=== PATIENT | male | born 1960 | race American Indian/Alaskan Native ===

== ENCOUNTER 2016-08-19 11:13 | Emergency (ER) | payer BC, OTHER ==
[~2016-08-19] VITALS: Ht 177.8 cm; Wt 106.6 kg
[2016-08-19] MEDS ORDERED: KETOROLAC 30 MG/ML VIAL IVP ONE (11:30)
[2016-08-19] MEDS ORDERED: NS IV 1000 ML 1,000 ML IV SCH (11:30)
--- NOTE | 2016-08-19 11:33 | ED Abdominal Pain ---
General Chief Complaint: Abdominal/GI Problems Stated Complaint: ABD PAIN Source of Information: Patient Exam Limitations: No Limitations History of Present Illness Time Seen By Provider: 11:31 Initial Comments To ER with a four-day history of left low back pain, periumbilical abdominal pain as well as nausea. He also states that he's had some chills but no measured fevers. He had a similar episode of this a few months ago that resolved on its own. He states that he has had some bowel changes including stools that are looser than usual and occasionally have some blood and mucus on them. He has never had this evaluated. Timing/Duration: 4-5 Days Severity/Quality: Moderate Location: Periumbilical Radiation: Back Associated Symptoms: No Fever/Chills Allergies and Home Medications Allergies Coded Allergies: No Known Drug Allergies (Unverified , 08/19/16) Home Medications Ciprofloxacin HCl 500 Mg Tablet, 500 MG PO BID, #14 Prescribed by: BETTY MOHAN on 08/19/16 1245 Metronidazole 500 Mg Tablet, 500 MG PO TID, #21 Prescribed by: BETTY MOHAN on 08/19/16 1245 Review of Systems Constitutional: see HPI, chills, No fever EENTM: No Symptoms Reported Respiratory: No Symptoms Reported Cardiovascular: No Symptoms Reported Gastrointestinal: See HPI, Abdominal Pain, Diarrhea, Nausea, Rectal Bleeding, Denies Vomiting Genitourinary: No Symptoms Reported Musculoskeletal: no symptoms reported Skin: no symptoms reported Endocrine: No Symptoms Reported Past Ryczpyj-Bpilrp-Nmvebc Hx Patient Social History Recent Foreign Travel: No Contact w/Someone Who Travel: No Physical Exam Vital Signs VS - Last 72 Hours, by Label 08/19/16 11:32 Temp 97.2 Pulse 78 Resp 14 B/P (MAP) 156/105 Pulse Ox 95 O2 Delivery Room Air Capillary Refill : General Appearance: WD/WN, no apparent distress HEENT: PERRL/EOMI, normal ENT inspection Neck: non-tender, full range of motion Respiratory: normal breath sounds, no respiratory distress, no accessory muscle use Cardiovascular: regular rate, rhythm, no murmur Gastrointestinal: normal bowel sounds, non tender, soft, No distended, No guarding, No tenderness Extremities: normal range of motion, non-tender, normal inspection Neurologic/Psychiatric: alert, normal mood/affect, oriented x 3 Skin: normal color, warm/dry Progress/Results/Core Measures Results/Orders Lab Results Laboratory Tests Test 08/19/16 11:30 08/19/16 12:08 Range/Units White Blood Count 7.0 4.3-11.0 10^3/uL Red Blood Count 4.54 4.35-5.85 10^6/uL Hemoglobin 15.1 13.3-17.7 G/DL Hematocrit 43 40-54 % Mean Corpuscular Volume 94 80-99 FL Mean Corpuscular Hemoglobin 33 25-34 PG Mean Corpuscular Hemoglobin Concent 35 32-36 G/DL Red Cell Distribution Width 13.4 10.0-14.5 % Platelet Count 188 130-400 10^3/uL Mean Platelet Volume 10.1 7.4-10.4 FL Neutrophils (%) (Auto) 47 42-75 % Lymphocytes (%) (Auto) 40 12-44 % Monocytes (%) (Auto) 10 0-12 % Eosinophils (%) (Auto) 2 0-10 % Basophils (%) (Auto) 1 0-10 % Neutrophils # (Auto) 3.3 1.8-7.8 X 10^3 Lymphocytes # (Auto) 2.8 1.0-4.0 X 10^3 Monocytes # (Auto) 0.7 0.0-1.0 X 10^3 Eosinophils # (Auto) 0.1 0.0-0.3 10^3/uL Basophils # (Auto) 0.0 0.0-0.1 10^3/uL Sodium Level 138 135-145 MMOL/L Potassium Level 4.5 3.6-5.0 MMOL/L Chloride Level 105 98-107 MMOL/L Carbon Dioxide Level 23 21-32 MMOL/L Anion Gap 10 5-14 MMOL/L Blood Urea Nitrogen 13 7-18 MG/DL Creatinine 0.94 0.60-1.30 MG/DL Estimat Glomerular Filtration Rate > 60 BUN/Creatinine Ratio 14 Glucose Level 90 70-105 MG/DL Calcium Level 8.8 8.5-10.1 MG/DL Total Bilirubin 0.8 0.1-1.0 MG/DL Aspartate Amino Transf (AST/SGOT) 21 5-34 U/L Alanine Aminotransferase (ALT/SGPT) 18 0-55 U/L Alkaline Phosphatase 61 40-136 U/L Total Protein 6.7 6.4-8.2 G/DL Albumin 3.9 3.2-4.5 G/DL Urine Color YELLOW Urine Clarity CLEAR Urine pH 8 5-9 Urine Specific [place] 1.015 L 1.016-1.022 Urine Protein NEGATIVE NEGATIVE Urine Glucose (UA) NEGATIVE NEGATIVE Urine Ketones NEGATIVE NEGATIVE Urine Nitrite NEGATIVE NEGATIVE Urine Bilirubin NEGATIVE NEGATIVE Urine Urobilinogen NORMAL NORMAL MG/DL Urine Leukocyte Esterase NEGATIVE NEGATIVE Urine RBC (Auto) 3+ H NEGATIVE Urine RBC 5-10 H /HPF Urine WBC NONE /HPF Urine Squamous Epithelial Cells 0-2 /HPF Urine Crystals NONE /LPF Urine Bacteria NEGATIVE /HPF Urine Casts NONE /LPF Urine Mucus NEGATIVE /LPF Urine Culture Indicated NO My Orders Orders - BETTY MOHAN APRN Cbc With Automated Diff (08/19/16 11:30) Comprehensive Metabolic Panel (08/19/16 11:30) Ct Abdomen/Pelvis W (08/19/16 11:30) Saline Lock/Iv-Start (08/19/16 11:30) Ns Iv 1000 Ml (Sodium Chloride 0.9%) (08/19/16 11:30) Ketorolac Injection (Toradol Injection) (08/19/16 11:30) Ua Culture If Indicated (08/19/16 11:35) Iohexol Injection (Omnipaque 350 Mg/Ml 1 (08/19/16 12:00) Di Iv Start (Assessment) .on IV start (08/19/16 11:51) Sodium Chloride Flush (Catheter Flush Sy (08/19/16 12:00) Ns (Ivpb) (Sodium Chloride 0.9% Ivpb Bag (08/19/16 12:00) Medications Given in ED Current Medications Medications Dose Ordered Sig/Иван Route Start Time Stop Time Status Last Admin Dose Admin Iohexol 100 ml ONCE ONCE IV 08/19/16 12:00 08/19/16 12:01 DC 08/19/16 12:19 100 ML Ketorolac Tromethamine 30 mg ONCE ONCE IVP 08/19/16 11:30 08/19/16 11:32 DC 08/19/16 11:47 30 MG Sodium Chloride 100 ml ONCE ONCE IV 08/19/16 12:00 08/19/16 12:01 DC 08/19/16 12:20 80 ML Vital Signs/I&O Vital Sign - Last 12Hours 08/19/16 11:32 Temp 97.2 Pulse 78 Resp 14 B/P (MAP) 156/105 Pulse Ox 95 O2 Delivery Room Air Progress Note : Progress Note I discussed the CT findings with Dr. Hong. He reports there may be some mild diverticulitis in the left lower quadrant. However there is a more concerning finding which would be an adrenal mass versus hemorrhage of the right adrenal gland. This could be better evaluated with an MRI of abdomen and pelvis both with and without contrast and he does agree that that could wait until Monday, as this has likely been present for quite some time and the patient voices no complaints of right-sided flank or upper quadrant pain. If the MRI is suspicious then he would recommend proceeding with CT guided biopsy. I did attempt to notify Dr. Martino however his office closes at noon on Monday so I will send him a carbon copy of this report. Departure Impression Impression: Primary Impression: Diverticulitis Additional Impression: Right adrenal mass Disposition: HOME, SELF-CARE Condition: Stable Departure-Patient Inst. Decision time for Depature: 12:42 Referrals: NO,LOCAL PHYSICIAN (PCP) Primary Care Physician RICHIE MARTINO MD Patient Instructions: Diverticulitis (DC) Add. Discharge Instructions: 1. Take the antibiotics as directed 2. Return to ER for any worsening symptoms, lightheadedness or right-sided pain 3. Call Dr. Martino on Monday morning at 8 a.m. to make an appointment to be seen. You will need to be scheduled for an MRI of the abdomen and pelvis with and without contrast to further evaluate the mass on your right adrenal gland All discharge instructions reviewed with patient and/or family. Voiced understanding. Scripts Metronidazole (Flagyl) 500 Mg Tablet 500 MG PO TID, #21 TAB Prov: BETTY MOHAN APRN 08/19/16 Ciprofloxacin HCl (Cipro) 500 Mg Tablet 500 MG PO BID, #14 TAB Prov: BETTY MOHAN APRN 08/19/16 Copy Copies To 1: RICHIE MARTINO MD, PETER J APRN Aug 19, 2016 11:33
[2016-08-19 11:36] LABS: BASOPHILS % (AUTO) 1 % (0-10); EOSINOPHILS # (AUTO) 0.1 10^3/uL (0.0-0.3); EOSINOPHILS % (AUTO) 2 % (0-10); LYMPHOCYTES # (AUTO) 2.8 X 10^3 (1.0-4.0); LYMPHOCYTES % (AUTO) 40 % (12-44); MEAN CORPUSCULAR HEMOGLOBIN 33 PG (25-34); MEAN CORPUSCULAR HGB CONC 35 G/DL (32-36); MEAN CORPUSCULAR VOLUME 94 FL (80-99); MEAN PLATELET VOLUME 10.1 FL (7.4-10.4); MONOCYTES # (AUTO) 0.7 X 10^3 (0.0-1.0); MONOCYTES % (AUTO) 10 % (0-12); NEUTROPHILS # (AUTO) 3.3 X 10^3 (1.8-7.8); NEUTROPHILS % (AUTO) 47 % (42-75); PLATELET COUNT 188 10^3/uL (130-400); RED BLOOD COUNT 4.54 10^6/uL (4.35-5.85); RED CELL DISTRIBUTION WIDTH 13.4 % (10.0-14.5)
[2016-08-19 11:53] LABS: ALANINE AMINOTRANSFERASE 18 U/L (0-55); ALBUMIN 3.9 G/DL (3.2-4.5); ANION GAP 10 MMOL/L (5-14); ASPARTATE AMINO TRANSFERASE 21 U/L (5-34); BILIRUBIN,TOTAL 0.8 MG/DL (0.1-1.0); BLOOD UREA NITROGEN 13 MG/DL (7-18); BUN/CREATININE RATIO 14; CALCIUM 8.8 MG/DL (8.5-10.1); CARBON DIOXIDE 23 MMOL/L (21-32); CHLORIDE 105 MMOL/L (98-107); CREATININE SERUM 0.94 MG/DL (0.60-1.30); GFR ESTIMATED > 60; GLUCOSE 90 MG/DL (70-105); POTASSIUM 4.5 MMOL/L (3.6-5.0); SODIUM 138 MMOL/L (135-145); TOTAL PROTEIN 6.7 G/DL (6.4-8.2)
[2016-08-19] MEDS ORDERED: NS 100 ML (IVPB) BAG IV ONE (12:00)
[2016-08-19] MEDS ORDERED: IOHEXOL 350 MG/ML 100 ML (OMNIPAQUE 350) VIAL IV ONE (12:00)
[2016-08-19] MEDS ORDERED: CATHETER FLUSH 10 ML SYR IV PRN (12:00)
[2016-08-19 12:13] LABS: BILIRUBIN,URINE NEGATIVE (NEGATIVE); KETONES,URINE NEGATIVE (NEGATIVE); LEUKOCYTE ESTERASE ,URINE NEGATIVE (NEGATIVE); NITRITE,URINE NEGATIVE (NEGATIVE); PH,URINE 8 (5-9); PROTEIN,URINE NEGATIVE (NEGATIVE); UROBILINOGEN,URINE NORMAL (NORMAL)
[2016-08-19 12:34] LABS: SQUAMOUS EPITHELIAL CELL,UR 0-2 /HPF
[2016-08-19] MEDS ORDERED: CIPR-225 PO (12:45)
[2016-08-19] MEDS ORDERED: METR500T PO (12:45)
--- NOTE | 2016-08-19 12:50 | Diagnostic Imaging Report ---
PROCEDURE: CT abdomen and pelvis with contrast. TECHNIQUE: Multiple contiguous axial images were obtained through the abdomen and pelvis after administration of intravenous contrast. INDICATION: Abdominal pain. 100 mL of Omnipaque 350 is administered intravenously. FINDINGS: The lung bases appear clear. The liver, the gallbladder, the spleen, the pancreas and the left adrenal gland appear unremarkable. There is a right suprarenal mass that appears to arise from the right adrenal gland with smooth margins and heterogeneous internal density measuring 8.4 x 6 x 7 cm. There is heterogenous increased density and fluid level attenuation within it. Accurate assessment of such density pattern would be better achieved with comparison with an unenhanced exam or correlation with MRI of the abdomen with an adrenal mass protocol. The differential possibilities include a neoplasm versus adrenal hemorrhage. The kidneys demonstrate symmetric enhancement and contrast excretion. There is a 1 cm hypodense lesion in the medial aspect of the right kidney too small to accurately characterize. No hydronephrosis. The abdominal aorta is normal in caliber. No para-aortic significantly enlarged lymph nodes seen. The sigmoid colon demonstrates diverticula with mild thickening in the proximal sigmoid. There is no significant pericolonic inflammation however. No abscess or free fluid. The findings are likely secondary to mild diverticulitis. There is minimal nonspecific thickening in the urinary bladder which could be from adjacent diverticulitis or cystitis. No bowel obstruction. The appendix is normal. Tiny umbilical fat-containing hernia seen. The osseous structures appear grossly unremarkable. IMPRESSION: 1. Findings suggestive of mild diverticulitis with no abscess. The urinary bladder wall is slightly thickened, may relate to element of cystitis. Correlate clinically. 2. Well defined heterogenous 8.5 cm right adrenal mass may relate to a neoplasm or adrenal hemorrhage. To differentiate internal clot from enhancing component, a comparison with an unenhanced exam after the contrast washes out or correlation with MRI of the abdomen with and without contrast is recommended. Findings were discussed with Mr. Nima Johnson, BLAISE physician assistant manager retail by Dr. Hong at time of dictation. Dictated by: Dictated on workstation # [id number]
[2016-08-19 13:15] VITALS: BP 147/62
--- OUTSIDE RECORDS SUMMARY | 2016-08-21 12:30 | XMS REPORT ---
Author Author [facility] Organization [facility] Address [address] [place], [place] [id number] Care Team Providers Care Locator Name Role Phone PCP Unavailable Allergies and Adverse Reactions Name Reaction Notes NO KNOWN DRUG ALLERGIES Plan of Treatment Planned Activity Comments Planned Date Planned Time Plan/Goal ECHO EXAM OF ABDOMEN 12/30/2013 12:00 AM X-RAY EXAM OF KNEE 3 09/24/2014 12:00 AM COMPLETE CBC AUTOMATED 09/24/2014 12:00 AM ASSAY OF BLOOD/URIC ACID 09/24/2014 12:00 AM RHEUMATOID FACTOR QUANT 09/24/2014 12:00 AM RBC SED RATE AUTOMATED 09/24/2014 12:00 AM Medications Active Name Start Date Estimated Completion Date SIG Comments prednisone oral tablet 20 mg 09/24/2014 10/03/2014 Take 3 tabs PO once daily x 3 days, then 2 tabs PO once daily x 3 days and then 1 tab PO once daily for 3 days diclofenac sodium oral tablet,delayed release (DR/EC) 75 mg 09/24/20142014 take 1 tablet (75 mg) by oral route 2 times per day for 30 days Name Start Date Expiration Date SIG Comments Zithromax Z-Del oral tablet 250 mg 11/07/2013 11/12/2013 take 2 tablets (500 mg) by oral route once daily for 1 day then 1 tablet (250 mg) by oral route once daily for 4 days amoxicillin oral capsule 500 mg 05/20/2014 05/30/2014 take 1 capsule (500 mg) by oral route 3 times per day for 10 days prednisone oral tablet 20 mg 05/20/2014 05/29/2014 take 3 tabs PO x 3 days, then 2 tabs PO x 3 days, and then 1 tab PO x 3 days Voltaren topical gel 1 % 06/04/2014 08/03/2014 apply 2 gram to the affected area (s) by topical route 4 times per day for 30 days omeprazole oral capsule,delayed release(DR/EC) 20 mg 06/04/2014 08/03/2014 take 1 capsule (20 mg) by oral route once daily 30 minutes to 1 hour before a meal for 60 days Discontinued Name Start Date Discontinued Date SIG Comments hydrocodone-acetaminophen oral tablet 5-325 mg 12/28/2013 05/20/2014 take 1 tablet by oral route every 6 hours as needed for pain naproxen sodium oral tablet 550 mg 05/20/2014 09/24/2014 take 1 tablet (550 mg) by oral route every 12 hours as needed Problem List Not available. Vital Signs Date Time BP-Sys(mm[Hg] BP-Rosalee(mm[Hg]) HR(bpm) RR(rpm) Temp WT HT HC BMI BSA BMI Percentile O2 Sat(%) 09/24/2014 8:08:00 AM 132 mmHg 88 mmHg 63 bpm 20 rpm 97.4 F 233 lbs 70 in 33.43 kg/m2 2.28 m2 99 % 06/04/2014 8:51:00 AM 142 mmHg 88 mmHg 84 bpm 20 rpm 99 F 242 lbs 70 in 34.723 kg/m 2.3284 m 05/20/2014 10:01:00 AM 121 mmHg 79 mmHg 70 bpm 20 rpm 98.3 F 238.8 lbs 70.5 in 33.78 kg/m2 2.32 m2 99 % 12/28/2013 12:09:00 PM 138 mmHg 82 mmHg 88 bpm 18 rpm 97.5 F 237 lbs 70.5 in 33.525 kg/m 2.3124 m 94 % 11/07/2013 1:53:00 PM 139 mmHg 81 mmHg 93 bpm 20 rpm 98.2 F 233.4 lbs 70.5 in 33.02 kg/m2 2.29 m2 95 % Social History Name Description Comments Tobacco Current every day smoker Chewing Tobacco Caffeine 6-7 day Alcohol History of Procedures Date Ordered Description Order Status 11/07/2013 12:00 AM THER/PROPH/DIAG INJ SC/IM Reviewed 12/28/2013 12:00 AM COMPLETE CBC W/AUTO DIFF WBC Returned 12/28/2013 12:00 AM COMPREHEN METABOLIC PANEL Returned Results Summary Data and Description Results 12/28/2013 12:45 PM GLUCOSE 103.0 mg/dLSODIUM 138.0 mmol/LPOTASSIUM 4.30 mmol/ LCHLORIDE 106.0 mmol/LCO2 24.0 mmol/LBUN 14.0 mg/dLCREATININE 1.0 mg/dLSGOT/AST 19.0 IU/LSGPT/ALT 17.0 IU/LALK PHOS 67.0 IU/LTOTAL PROTEIN 6.80 g/dLALBUMIN 4.10 g/dLTOTAL BILI 1.0 mg/dLCALCIUM 8.90 mg/dLeGFR 60 WBC 6.0 RBC 4.39 HGB 14.30 g/dLHCT 41.0 %MCV 93.0 fLMCH 32.60 pgMCHC 34.90 g/dLRDW CV 13.60 %MPV 9.90 fLPLT 196 %NEUT 45.80 %%LYMP 41.40 %%MONO 8.10 %%EOS 3.90 %%BASO 0.80 %# NEUT 2.73 #LYMP 2.47 #MONO 0.48 #EOS 0.23 #BASO 0.05 History Of Immunizations Not available. History of Past Illness Name Date of Onset Comments arm pain shoulder pain Upper Respiratory Infections Nov 07 2013 1:55PM RUQ pain Dec 28 2013 12:12PM RUQ abdominal pain Dec 30 2013 11:37AM Dental infection May 20 2014 10:03AM Left arm numbness May 20 2014 10:03AM Left shoulder pain May 20 2014 10:03AM Neck pain on left side May 20 2014 10:03AM Rotator Cuff Syndrome Jun 04 2014 8:53AM Subacromial Bursitis Jun 04 2014 8:53AM Rotator cuff (capsule) sprain Jun 04 2014 8:53AM Acromioclavicular joint arthritis Jun 04 2014 8:53AM Cervical pain (neck) Jun 04 2014 8:53AM Carpal tunnel syndrome, left Jun 04 2014 8:53AM Knee pain Sep 24 2014 8:09AM Joint pain Sep 24 2014 8:09AM Joint swelling Sep 24 2014 8:09AM Payers Insurance Name Company Name Plan Name Plan Number Policy Number Policy Group Number Start Date [facility] [id number] N/A History of Encounters Visit Date Visit Type Provider 09/24/2014 Office visit Haily Leon PLASTERING CONTRACTOR 06/04/2014 Office visit Jesus Bryan MD 05/20/2014 Office visit Haily Leon PLASTERING CONTRACTOR 12/28/2013 Office visit Pablo Forte PLASTERING CONTRACTOR 11/07/2013 Office visit Haily Leon APRN
--- OUTSIDE RECORDS SUMMARY | 2016-08-21 12:30 | XMS REPORT ---
Author Author Haily Leon [facility] Address [address] [place], [place] [id number] Care Team Providers Care Charging Crane Operator Name Role Phone Haily Leon PCP Unavailable Allergies and Adverse Reactions Name Reaction Notes NO KNOWN DRUG ALLERGIES Plan of Treatment Planned Activity Comments Planned Date Planned Time Plan/Goal ECHO EXAM OF ABDOMEN 12/30/2013 12:00 AM Medications Active Name Start Date Estimated Completion Date SIG Comments diclofenac sodium 75 mg oral tablet,delayed release (DR/EC) 11/07/20142014 take 1 tablet (75 mg) by oral route 2 times per day for 30 days Name Start Date Expiration Date SIG Comments Zithromax Z-Del 250 mg oral tablet 11/07/2013 11/12/2013 take 2 tablets (500 mg) by oral route once daily for 1 day then 1 tablet (250 mg) by oral route once daily for 4 days amoxicillin 500 mg oral capsule 05/20/2014 05/30/2014 take 1 capsule (500 mg) by oral route 3 times per day for 10 days prednisone 20 mg oral tablet 05/20/2014 05/29/2014 take 3 tabs PO x 3 days, then 2 tabs PO x 3 days, and then 1 tab PO x 3 days Voltaren 1 % topical gel 06/04/2014 08/03/2014 apply 2 gram to the affected area (s) by topical route 4 times per day for 30 days omeprazole 20 mg oral capsule,delayed release(DR/EC) 06/04/2014 08/03/2014 take 1 capsule (20 mg) by oral route once daily 30 minutes to 1 hour before a meal for 60 days prednisone 20 mg oral tablet 09/24/2014 10/03/2014 Take 3 tabs PO once daily x 3 days, then 2 tabs PO once daily x 3 days and then 1 tab PO once daily for 3 days Discontinued Name Start Date Discontinued Date SIG Comments hydrocodone-acetaminophen 5-325 mg oral tablet 12/28/2013 05/20/2014 take 1 tablet by oral route every 6 hours as needed for pain naproxen sodium 550 mg oral tablet 05/20/2014 09/24/2014 take 1 tablet (550 mg) by oral route every 12 hours as needed Problem List Not available. Vital Signs Date Time BP-Sys(mm[Hg] BP-Rosalee(mm[Hg]) HR(bpm) RR(rpm) Temp WT HT HC BMI BSA BMI Percentile O2 Sat(%) 01/27/2015 9:29:00 AM 121 mmHg 81 mmHg 71 bpm 20 rpm 97.2 F 234 lbs 70 in 33.58 kg/m2 2.29 m2 97 % 09/24/2014 8:08:00 AM 132 mmHg 88 mmHg 63 bpm 20 rpm 97.4 F 233 lbs 70 in 33.4317 kg/m 2.2847 m 99 % 06/04/2014 8:51:00 AM 142 mmHg 88 mmHg 84 bpm 20 rpm 99 F 242 lbs 70 in 34.72 kg/m2 2.33 m2 05/20/2014 10:01:00 AM 121 mmHg 79 mmHg 70 bpm 20 rpm 98.3 F 238.8 lbs 70.5 in 33.7796 kg/m 2.3212 m 99 % 12/28/2013 12:09:00 PM 138 mmHg 82 mmHg 88 bpm 18 rpm 97.5 F 237 lbs 70.5 in 33.52 kg/m2 2.31 m2 94 % 11/07/2013 1:53:00 PM 139 mmHg 81 mmHg 93 bpm 20 rpm 98.2 F 233.4 lbs 70.5 in 33.0157 kg/m 2.2948 m 95 % Social History Name Description Comments Tobacco Current every day smoker Chewing Tobacco Never Caffeine Current every day 6-7 day Alcohol Never History of Procedures Date Ordered Description Order Status 11/07/2013 12:00 AM THER/PROPH/DIAG INJ SC/IM Reviewed 11/07/2013 12:00 AM Decadron, Per [address] [facility]# [id number] Reviewed 11/07/2013 12:00 AM Depo-Medrol, Per [address] [facility]#[id number] Reviewed 12/28/2013 12:00 AM COMPLETE CBC W/AUTO DIFF WBC Returned 12/28/2013 12:00 AM COMPREHEN METABOLIC PANEL Returned 12/28/2013 12:00 AM RADEX ABDOMEN COMPL W/DCBTS&/ERC VIEWS Returned 05/20/2014 12:00 AM Physiatry Consult Reviewed 06/04/2014 12:00 AM RADEX SHOULDER COMPLETE MINIMUM 2 VIEWS Returned 06/04/2014 12:00 AM RADEX SPINE CERVICAL 4 OR 5 VIEWS Returned 09/24/2014 12:00 AM RADIOLOGIC EXAMINATION KNEE 3 VIEWS Returned 09/24/2014 12:00 AM COMPLETE CBC AUTOMATED Returned 09/24/2014 12:00 AM ASSAY OF BLOOD/URIC ACID Returned 09/24/2014 12:00 AM RHEUMATOID FACTOR QUANT Returned 09/24/2014 12:00 AM RBC SED RATE AUTOMATED Returned Results Summary Data and Description Results [...] 2.47 #MONO 0.48 #EOS 0.23 #BASO 0.05 09/24/2014 9:25 AM SEDRATE 12.0 mm/hrWBC 5.5 RBC 4.63 HGB 15.20 g/dLHCT 44.60 % MCV 96.0 fLMCH 32.80 pgMCHC 34.10 g/dLRDW CV 14.0 %MPV 10.20 fLPLT 172 %NEUT 45.40 %%LYMP 41.20 %%MONO 10.30 %%EOS 2.40 %%BASO 0.70 %#NEUT 2.50 #LYMP 2.27 # MONO 0.57 #EOS 0.13 #BASO 0.04 RA Factor <15.0 IU/mLURIC ACID 5.5 mg/dL History Of Immunizations Not available. History of [...] 8:09AM Joint swelling Sep 24 2014 8:09AM Left knee pain Jan 27 2015 9:30AM Payers Insurance Name Company Name Plan Name Plan Number Policy Number Policy Group Number Start Date [facility] [id number] N/A History of Encounters Visit Date Visit Type Provider 01/27/2015 Office visit Haily Leon ADULT AND PEDIATRIC NEUROLOGIST 09/24/2014 Office visit Haily Leon ADULT AND PEDIATRIC NEUROLOGIST 06/04/2014 Office visit Jesus Bryan MD 05/20/2014 Office visit Haily Leon ADULT AND PEDIATRIC NEUROLOGIST 12/28/2013 Office visit Pablo Forte ADULT AND PEDIATRIC NEUROLOGIST 11/07/2013 Office visit Haily Leon ADULT AND PEDIATRIC NEUROLOGIST
--- OUTSIDE RECORDS SUMMARY | 2016-08-21 12:30 | XMS REPORT ---
Author Author Haily Leon [facility] Address [address] [place], [place] [id number] Care Team Providers Care Public Health Policy Analyst Name Role Phone Haily Leon PCP Unavailable Allergies and Adverse Reactions Name Reaction Notes NO KNOWN DRUG ALLERGIES Plan of Treatment Planned Activity Comments Planned Date Planned Time Plan/Goal ECHO EXAM OF ABDOMEN 12/30/2013 12:00 AM left knee pain 02/26/2015 1:00 PM Medications Active Name Start Date Estimated Completion [...] 11/07/2013 12:00 AM Decadron, Per 1 Mg [facility]# [id number] Reviewed 11/07/2013 12:00 AM Depo-Medrol, Per 80 Mg [facility]#[id number] Reviewed 12/28/2013 12:00 AM COMPLETE CBC W/AUTO [...] Policy Number Policy Group Number Start Date [facility] [id number] N/A History of Encounters Visit Date Visit Type Provider 01/27/2015 Office visit Haily Leon FORECLOSURE SPECIALIST 09/24/2014 Office visit Haily Leon FORECLOSURE SPECIALIST 06/04/2014 Office visit Jesus Bryan MD 05/20/2014 Office visit Haily Leon FORECLOSURE SPECIALIST 12/28/2013 Office visit Pablo Forte FORECLOSURE SPECIALIST 11/07/2013 Office visit Haily Leon FORECLOSURE SPECIALIST
--- OUTSIDE RECORDS SUMMARY | 2016-08-21 12:30 | XMS REPORT ---
Author Author Haily Leon [facility] Address [address] [place], [place] [phone] Care Team Providers Care Heel Compressor Name Role Phone Haily Leon PCP Unavailable Allergies and Adverse Reactions Name Reaction Notes NO KNOWN DRUG ALLERGIES Plan of Treatment Planned Activity Comments Planned Date Planned Time Plan/Goal ECHO EXAM OF ABDOMEN 12/30/2013 12:00 AM left knee pain 02/26/2015 1:00 PM Medications Name Start Date Expiration Date SIG Comments [...] once daily for 3 days diclofenac sodium 75 mg oral tablet,delayed release (DR/EC) 11/07/20142014 take 1 tablet (75 mg) by oral route 2 times per day for 30 days Discontinued Name Start Date Discontinued Date [...] 11/07/2013 12:00 AM Decadron, Per 1 Mg [facility]# [id number] Reviewed 11/07/2013 12:00 AM Depo-Medrol, Per 80 Mg [facility]#[id number] Reviewed 12/28/2013 12:00 AM COMPLETE CBC W/AUTO [...] Group Number Start Date [facility] [id number] N/A History of Encounters Visit Date Visit Type Provider 01/27/2015 Office visit Haily Leon CERTIFIED INDUSTRIAL HYGIENIST 09/24/2014 Office visit Haily Leon CERTIFIED INDUSTRIAL HYGIENIST 06/04/2014 Office visit Jesus Bryan MD 05/20/2014 Office visit Haily Leon CERTIFIED INDUSTRIAL HYGIENIST 12/28/2013 Office visit Pablo Forte CERTIFIED INDUSTRIAL HYGIENIST 11/07/2013 Office visit Haily Leon CERTIFIED INDUSTRIAL HYGIENIST
--- OUTSIDE RECORDS SUMMARY | 2016-08-21 12:31 | XMS REPORT | Continuity of Care Document ---
Author Author [facility] Organization [facility] Address Unknown Phone Unavailable Allergies Medications Problems Procedures Results Encounters ACCT No. Visit Date/Time Discharge Status Pt. Type Provider Facility Loc./Unit Complaint [id number] 01/27/2015 10:16:37 01/27/2015 23: 59:59 CLS Outpatient Haily Leon [id number] 09/24/2014 08:56:06 09/24/2014 23: 59:59 CLS Outpatient Haily Leon [id number] 06/04/2014 09:30:35 06/04/2014 23: 59:59 CLS Outpatient Jesus Bryan [id number] 05/20/2014 10:41:51 05/20/2014 23: 59:59 CLS Outpatient Haily Leon [id number] 12/28/2013 13:07:12 12/28/2013 23: 59:59 CLS Outpatient Pablo Forte [id number] 11/07/2013 14:38:05 11/07/2013 23: 59:59 CLS Outpatient Haily Leon
--- OUTSIDE RECORDS SUMMARY | 2016-08-21 12:31 | XMS REPORT ---
Author Author Haily Leon [facility] Address [address] [place], [place] [id number] Care Team Providers Care Piper Helper Name Role Phone Haily Leon PCP Unavailable [...] 11/07/2013 12:00 AM Decadron, Per 1 Mg [facility]# [id number] Reviewed 11/07/2013 12:00 AM Depo-Medrol, Per 80 Mg [facility]#[id number] Reviewed 12/28/2013 12:00 AM COMPLETE CBC W/AUTO [...] Policy Number Policy Group Number Start Date [facility] [id number] N/A History of Encounters Visit Date Visit Type Provider 01/27/2015 Office visit Haily Leon IT SYSTEMS ANALYST 09/24/2014 Office visit Haily Leon IT SYSTEMS ANALYST 06/04/2014 Office visit Jesus Bryan MD 05/20/2014 Office visit Haily Leon IT SYSTEMS ANALYST 12/28/2013 Office visit Pablo Forte IT SYSTEMS ANALYST 11/07/2013 Office visit Haily Leon IT SYSTEMS ANALYST
== END 2016-08-19 13:15 | disposition home or self-care (01) ==
LOC: ER 11:18
DX: K57.32 Diverticulitis of large intestine without perforation or abscess without bleeding (principal); E27.9 Disorder of adrenal gland, unspecified; N32.9 Bladder disorder, unspecified
CPT/HCPCS: 36415; 74177; 80053; 81000; 85025; 96361; 96374

== ENCOUNTER → 2016-08-23 | Outpatient (CLI) | payer BC ==
[~2016-08-23] MED LIST: AMOX-358 PO; CIPR-225 PO; CIPR500T4 PO; DICL75TA2 PO; GADOBUTROL 10 MMOL/10 ML (GADAVIST) VIAL IV ONE; METR500T PO; METR500T21 PO; OXYC5TAB71 PO
--- NOTE | 2016-08-24 08:31 | Diagnostic Imaging Report ---
PROCEDURE: MR imaging abdomen with and without contrast. TECHNIQUE: Multiplanar, multisequence MR imaging of the abdomen was performed with and without contrast. INDICATION: Adrenal mass seen on CT scan. 8 mL of Gadavist is administered intravenously. Correlation with the CT of 08/19/16 is reviewed. FINDINGS: There is an 8.5 x 4.4 x 7.3 cm right adrenal mass. It is heterogenous with T1 hyperintense components and central poor enhancement in the regions of T2 hyperintensity along its anterior aspect. The findings are suggestive of a hemorrhagic and necrotic components. There is evidence of enhancing areas particularly along its medial inferior and lateral superior posterior aspects. The interface between the upper pole of the kidney, and the adjacent liver with the mass demonstrate clear margins with no evidence of invasion. The right kidney and the liver appear normal with no focal mass. The left adrenal gland appears normal. There are 2 simple cysts seen in the left kidney up to 1 cm in size in the upper pole and 5 mm nonenhancing cyst in the lower pole of the left kidney. The spleen is normal in size. There is no pancreatic mass or pancreatic ductal dilatation. The gallbladder appears unremarkable. No periaortic significantly enlarged lymph node is seen. IMPRESSION: Right adrenal mass with suggestion of hemorrhagic and necrotic components and mild internal vascularity is concerning for neoplasm such as adrenal cortical carcinoma or less likely phaeochromocytoma. CT-guided biopsy could be obtained for tissue diagnosis. Report was faxed to office of Dr. Fontana by daniele at 8:35 am. Dictated by: Dictated on workstation # [id number]
== END ==
LOC: RAD 15:38
PROVIDERS: ATTEND Family Medicine
DX: E27.9 Disorder of adrenal gland, unspecified (principal)
CPT/HCPCS: 74183

== ENCOUNTER 2016-08-26 07:31 | Day surgery (SDC) | payer BC ==
[~2016-08-26] VITALS: Ht 177.8 cm; Wt 106.6 kg
[2016-08-26] VITALS (12 sets, daily range): BP systolic 100–131; BP diastolic 63–81
[~2016-08-26 07:31] MED LIST changes: -AMOX-358 PO; -CIPR500T4 PO; -DICL75TA2 PO; -GADOBUTROL 10 MMOL/10 ML (GADAVIST) VIAL IV ONE; -METR500T21 PO; -OXYC5TAB71 PO
[2016-08-26 08:11] LABS: BASOPHILS % (AUTO) 1 % (0-10); EOSINOPHILS # (AUTO) 0.2 10^3/uL (0.0-0.3); EOSINOPHILS % (AUTO) 4 % (0-10); LYMPHOCYTES # (AUTO) 1.7 X 10^3 (1.0-4.0); LYMPHOCYTES % (AUTO) 35 % (12-44); MEAN CORPUSCULAR HEMOGLOBIN 33 PG (25-34); MEAN CORPUSCULAR HGB CONC 35 G/DL (32-36); MEAN CORPUSCULAR VOLUME 94 FL (80-99); MEAN PLATELET VOLUME 10.2 FL (7.4-10.4); MONOCYTES # (AUTO) 0.7 X 10^3 (0.0-1.0); MONOCYTES % (AUTO) 14 % (0-12); NEUTROPHILS # (AUTO) 2.3 X 10^3 (1.8-7.8); NEUTROPHILS % (AUTO) 46 % (42-75); PLATELET COUNT 189 10^3/uL (130-400); RED BLOOD COUNT 4.56 10^6/uL (4.35-5.85); WHITE BLOOD COUNT 4.9 10^3/uL (4.3-11.0)
[2016-08-26 08:20] LABS: INR 1.1 (0.8-1.4); PROTHROMBIN TIME PATIENT 13.6 SEC (12.2-14.7)
[2016-08-26] MEDS ORDERED: LIDOCAINE 1% INJ 20 ML (XYLOCAINE) VIAL ONE (08:31)
[2016-08-26] MEDS ORDERED: fentaNYL INJECTION 100 MCG/2 ML AMP ONE (08:31)
[2016-08-26] MEDS ORDERED: HYDROcodone/APAP 5 MG/325 MG (LORTAB) TAB PO PRN (09:15)
--- NOTE | 2016-08-26 09:15 | Pre-Procedure Progress Note ---
Standard Progress Note Progress Notes/Assess & Plan Progress/Assessment & Plan Right adrenal mass present in for CT-guided biopsy. Patient interviewed with no change in his recent H&P. Final Diagnosis Right adrenal mass ELSI GLOVER MD Aug 26, 2016 09:15
--- NOTE | 2016-08-26 09:17 | Discharge Instructions ---
Discharge Instructions Home Medicaitons Changes Hold any current blood thinner home medications for [24 hours]. Otherwise no change in home medications. ELSI GLOVER MD Aug 26, 2016 09:17
--- NOTE | 2016-08-26 09:39 | Diagnostic Imaging Report ---
EXAMINATION: CT-guided biopsy-adrenal mass. INDICATION: Right adrenal mass. Current history and physical and other medical records are reviewed prior to the procedure. CONSENT: Informed consent was obtained from the patient. The risks, benefits, potential complications and alternatives were reviewed and all questions answered to the patient's satisfaction. The patient's vital signs, cardiac rhythm, and pulse oximetry were observed throughout the procedure by qualified nursing personnel. medications: Fentanyl 50 mcg IV. FINDINGS: Large right adrenal mass. PROCEDURE: After maximal sterile barrier technique preparation and draping, 1% lidocaine was utilized for local anesthesia. With the patient in right side down decubitus position, and via posterior intercostal approach, a 17-gauge guide needle is introduced into the right adrenal mass under CT scan guidance. After confirming adequate positioning with saved CT images, multiple 18 gauge core biopsy specimens were obtained. The patient tolerated the procedure well with no immediate complications. IMPRESSION: Successful CT-guided biopsy of right adrenal mass. Dictated by: Dictated on workstation # [id number]
[2016-08-26] MEDS ORDERED: LIDOCAINE 1% INJ 20 ML (XYLOCAINE) VIAL INJ ONE (09:45)
[2016-08-26] MEDS ORDERED: fentaNYL INJECTION 100 MCG/2 ML AMP IVP PRN (09:45)
--- OUTSIDE RECORDS SUMMARY | 2016-09-18 07:47 | XMS REPORT | Continuity of Care Document ---
Author Author [facility] Organization [facility] Address Unknown Phone Unavailable Allergies Medications Problems Procedures Results Encounters ACCT No. Visit Date/Time Discharge Status Pt. Type Provider Facility Loc./Unit Complaint [id number] 01/27/2015 10:16:37 01/27/2015 23: 59:59 CLS Outpatient Haily Leon [id number] 09/24/2014 08:56:06 09/24/2014 23: 59:59 CLS Outpatient Haily Leon [id number] 06/04/2014 09:30:35 06/04/2014 23: 59:59 CLS Outpatient Jesus Bryan [id number] 05/20/2014 10:41:51 05/20/2014 23: 59:59 CLS Outpatient Haily Leon [id number] 12/28/2013 13:07:12 12/28/2013 23: 59:59 CLS Outpatient Pablo Forte [id number] 11/07/2013 14:38:05 11/07/2013 23: 59:59 CLS Outpatient Haily Leon
== END 2016-08-26 13:22 | disposition home or self-care (01) ==
LOC: DELPENDDIS → RAD 07:31 → SURG 09:45 → RAD 13:22
PROVIDERS: ATTEND Family Medicine
DX: E27.9 Disorder of adrenal gland, unspecified (principal)
CPT/HCPCS: 36415; 77012; 85025; 85610; 85730; 88305

== ENCOUNTER → 2016-09-27 | Outpatient (CLI) | payer BC ==
[~2016-09-27] MED LIST changes: +AMOX-358 PO; +CATHETER FLUSH 10 ML SYR IV PRN; +CIPR500T4 PO; +DICL75TA2 PO; +IOHEXOL 350 MG/ML 100 ML (OMNIPAQUE 350) VIAL IV ONE; +METR500T21 PO; +OXYC5TAB71 PO
[2016-09-27 12:21] LABS: MEAN PLATELET VOLUME 10.3 FL (7.4-10.4); RED BLOOD COUNT 4.65 10^6/uL (4.35-5.85); RED CELL DISTRIBUTION WIDTH 13.8 % (10.0-14.5); WHITE BLOOD COUNT 11.1 10^3/uL (4.3-11.0)
[2016-09-27 12:41] LABS: ALANINE AMINOTRANSFERASE 18 U/L (0-55); ANION GAP 7 MMOL/L (5-14); ASPARTATE AMINO TRANSFERASE 18 U/L (5-34); BILIRUBIN,TOTAL 1.6 MG/DL (0.1-1.0); BLOOD UREA NITROGEN 12 MG/DL (7-18); BUN/CREATININE RATIO 14; CALCIUM 9.2 MG/DL (8.5-10.1); CARBON DIOXIDE 27 MMOL/L (21-32); CHLORIDE 103 MMOL/L (98-107); CREATININE SERUM 0.86 MG/DL (0.60-1.30); GFR ESTIMATED > 60; GLUCOSE 97 MG/DL (70-105); LIPASE 10 U/L (8-78); POTASSIUM 3.5 MMOL/L (3.6-5.0); SODIUM 137 MMOL/L (135-145); TOTAL PROTEIN 7.2 G/DL (6.4-8.2)
--- NOTE | 2016-09-27 13:30 | Diagnostic Imaging Report ---
PROCEDURE: CT abdomen and pelvis with and without contrast. TECHNIQUE: Precontrast acquisitions were acquired through the abdomen and pelvis. Multiple contiguous axial images were obtained through the abdomen and pelvis after the administration of intravenous contrast. INDICATION: Periumbilical and right lower quadrant pain. COMPARISON: 08/19/2016. DISCUSSION: The visualized lung bases are well-aerated. Normal heart size. No pleural or pericardial fluid. The large heterogenous low attenuation right adrenal mass does not appear to be significantly changed in overall size or appearance. Mass measures 8.5 x 6.4 cm. This mass was previously biopsied. The liver, stomach, pancreas, spleen, left adrenal gland kidneys, and prostate are unremarkable. Urinary bladder is mostly decompressed. Inflammatory changes are noted within the right lower quadrant primarily involving the appendix and the adjacent cecum. There does appear to be diverticular disease noted within the proximal right colon which is also within the inflammatory changes. The appendix is mildly thickwalled. Findings could be seen with acute diverticulitis and/or appendicitis. Recommend clinical correlation. There is no perforation or abscess formation identified. No obstruction. No ascites or pathologically enlarged lymph nodes identified. No acute osseous abnormality identified. IMPRESSION: 1. Inflammatory changes are noted within the right lower quadrant, centered near the appendix and cecum. There appears to be more inflammatory involvement along the lateral aspect of the cecum than the appendix. The appendix is mildly thickwalled but does contain air. There is a small diverticulum arising from the proximal right colon. Findings are nonspecific though could be seen with uncomplicated diverticulitis or acute appendicitis. Typically, an inflamed appendix will not contain air though this finding is not definitive to exclude acute appendicitis. 2. Large right adrenal gland mass, stable. Dictated by: Dictated on workstation # [id number]
== END ==
LOC: RAD 11:56
PROVIDERS: ATTEND Family Medicine
DX: K57.30 Diverticulosis of large intestine without perforation or abscess without bleeding (principal); E27.9 Disorder of adrenal gland, unspecified
CPT/HCPCS: 36415; 74178; 80053; 83605; 83690; 85027

== ENCOUNTER 2016-09-30 14:27 | Inpatient (IN) | payer BC ==
[~2016-09-30] VITALS: Ht 177.8 cm; Wt 98.4 kg
[~2016-09-30 14:27] MED LIST changes: -AMOX-358 PO; -CATHETER FLUSH 10 ML SYR IV PRN; -CIPR500T4 PO; -DICL75TA2 PO; -IOHEXOL 350 MG/ML 100 ML (OMNIPAQUE 350) VIAL IV ONE; -METR500T21 PO; -OXYC5TAB71 PO
[2016-09-30 15:29] LABS: BASOPHILS % (AUTO) 1 % (0-10); EOSINOPHILS # (AUTO) 0.2 10^3/uL (0.0-0.3); EOSINOPHILS % (AUTO) 2 % (0-10); LYMPHOCYTES # (AUTO) 1.9 X 10^3 (1.0-4.0); LYMPHOCYTES % (AUTO) 29 % (12-44); MEAN CORPUSCULAR HEMOGLOBIN 32 PG (25-34); MEAN CORPUSCULAR HGB CONC 35 G/DL (32-36); MEAN CORPUSCULAR VOLUME 93 FL (80-99); MEAN PLATELET VOLUME 10.5 FL (7.4-10.4); MONOCYTES # (AUTO) 0.9 X 10^3 (0.0-1.0); MONOCYTES % (AUTO) 13 % (0-12); NEUTROPHILS # (AUTO) 3.6 X 10^3 (1.8-7.8); NEUTROPHILS % (AUTO) 55 % (42-75); PLATELET COUNT 184 10^3/uL (130-400); RED BLOOD COUNT 4.47 10^6/uL (4.35-5.85); RED CELL DISTRIBUTION WIDTH 13.2 % (10.0-14.5); WHITE BLOOD COUNT 6.6 10^3/uL (4.3-11.0)
[2016-09-30] MEDS ORDERED: PIPERACILLIN/TAZOBACTAM 4.5 GM/NS100 ML IVPB IV NR ×2 (15:33)
[2016-09-30 15:35] VITALS: BP 112/75
[2016-09-30 15:40] LABS: ANION GAP 10 MMOL/L (5-14); BLOOD UREA NITROGEN 12 MG/DL (7-18); BUN/CREATININE RATIO 13; CALCIUM 9.1 MG/DL (8.5-10.1); CARBON DIOXIDE 24 MMOL/L (21-32); CHLORIDE 103 MMOL/L (98-107); CREATININE SERUM 0.89 MG/DL (0.60-1.30); GFR ESTIMATED > 60; GLUCOSE 93 MG/DL (70-105); POTASSIUM 3.8 MMOL/L (3.6-5.0); SODIUM 137 MMOL/L (135-145)
[2016-09-30] MEDS: NS IV 1000 ML 1,000 ML IV SCH ×2 (15:44→22:09)
[2016-09-30] MEDS ORDERED: HYDROcodone/APAP 7.5 MG/325 MG (LORTAB, LORCET PLUS) TABLET PO PRN (15:45)
[2016-09-30] MEDS ORDERED: fentaNYL INJECTION 100 MCG/2 ML AMP IV PRN (15:45)
[2016-09-30] MEDS ORDERED: CATHETER FLUSH 10 ML SYR IV PRN (15:45)
[2016-09-30] MEDS ORDERED: ONDANSETRON 4 MG/2 ML (SDV) Z0FRAN IV PRN (15:45)
[2016-09-30] MEDS: NICOTINE 21 MG (NICODERM) PATCH TD SCH (15:48)
[2016-09-30] MEDS: PANTOPRAZOLE 40 MG/10 ML (PROTONIX) VIAL IV SCH (15:48)
[2016-09-30] MEDS ORDERED: CIPR500T4 PO (16:35)
[2016-09-30] MEDS ORDERED: DICL75TA2 PO (16:35)
[2016-09-30] MEDS ORDERED: OXYC5TAB71 PO (16:35)
[2016-09-30] MEDS ORDERED: METR500T21 PO (16:35)
[2016-09-30 19:50] VITALS: BP 150/99
[2016-09-30] MEDS: PIPERACILLIN/TAZOBACTAM 4.5 GM/NS 100 ML IVPB IV SCH ×2 (22:09)
[2016-10-01] VITALS: BP 124/80
[2016-10-01 04:00] VITALS: BP 136/84
[2016-10-01 05:18] LABS: BASOPHILS # (AUTO) 0.1 10^3/uL (0.0-0.1); BASOPHILS % (AUTO) 1 % (0-10); EOSINOPHILS # (AUTO) 0.2 10^3/uL (0.0-0.3); EOSINOPHILS % (AUTO) 5 % (0-10); LYMPHOCYTES % (AUTO) 47 % (12-44); MEAN CORPUSCULAR HEMOGLOBIN 33 PG (25-34); MEAN CORPUSCULAR HGB CONC 34 G/DL (32-36); MEAN CORPUSCULAR VOLUME 96 FL (80-99); MEAN PLATELET VOLUME 10.6 FL (7.4-10.4); MONOCYTES # (AUTO) 0.5 X 10^3 (0.0-1.0); MONOCYTES % (AUTO) 13 % (0-12); NEUTROPHILS # (AUTO) 1.4 X 10^3 (1.8-7.8); NEUTROPHILS % (AUTO) 33 % (42-75); PLATELET COUNT 164 10^3/uL (130-400); RED BLOOD COUNT 3.97 10^6/uL (4.35-5.85); RED CELL DISTRIBUTION WIDTH 13.4 % (10.0-14.5); WHITE BLOOD COUNT 4.3 10^3/uL (4.3-11.0)
[2016-10-01 05:40] LABS: ANION GAP 8 MMOL/L (5-14); BLOOD UREA NITROGEN 10 MG/DL (7-18); BUN/CREATININE RATIO 11; CALCIUM 8.2 MG/DL (8.5-10.1); CARBON DIOXIDE 24 MMOL/L (21-32); CHLORIDE 109 MMOL/L (98-107); GFR ESTIMATED > 60; GLUCOSE 90 MG/DL (70-105); POTASSIUM 3.9 MMOL/L (3.6-5.0); SODIUM 141 MMOL/L (135-145)
[2016-10-01] MEDS: PIPERACILLIN/TAZOBACTAM 4.5 GM/NS 100 ML IVPB IV SCH ×6 (05:53→22:02)
[2016-10-01] MEDS: NS IV 1000 ML 1,000 ML IV SCH ×3 (05:54→18:27)
[2016-10-01 08:55] VITALS: BP 149/74
[2016-10-01] MEDS: NICOTINE PATCH REMOVAL TP SCH (09:13)
[2016-10-01] MEDS: NICOTINE 21 MG (NICODERM) PATCH TD SCH (09:14)
[2016-10-01] MEDS: PANTOPRAZOLE 40 MG/10 ML (PROTONIX) VIAL IV SCH (09:14)
[2016-10-01 12:27] VITALS: BP 142/80
--- NOTE | 2016-10-01 12:45 | Consultation ---
History of Present Illness History of Present Illness Patient Consulted On(devaughn/time) 10/01/16 12:39 Date of Admission 09/30/16 Reason for Visit: Medical management as PCP History of Present Illness 56 yo M admitted for right lower quadrant abdominal pain- I ordered a CT on - that demonstrated colitis- I started him on metronidazole and ciprofloxacin and spoke with pt on 09/29/16 and he reported he was doing much better. Pt called my office on 09/30/16 reporting he still had abdominal pain and urinary frequency- he also had not had a good bowel movement recently. He reports having alternating normal, diarrhea, constipation, with and without blood in his stools for the past few months. Denies having a colonoscopy. I was consulted for medical management -patient was admitted yesterday by Dr. Tubbs for further evaluation of his abdominal pain. Patient been on ciprofloxacin and metronidazole for the past couple days with some improvement in his abdominal pain but not complete resolution. Patient had been using oxycodone 5 mg which seemed to help with his abdominal pain but he was using Macho to prevent further constipation. Patient did have a CT of his abdomen done on 09/27/16 which demonstrated colitis of his right side of his abdomen and possible concern for appendicitis. On admission patient was started on IV fluids and put on IV Zosyn. This a.m. patient reports feeling much better and would like to go home as he did have a good bowel movement that he described as dark in color near black. The urinary frequency the patient had been complaining about has resolved he feels like he is urinating more normal. Pt works at [employer] in [place]. He also smokes cigarettes. Denies any etoh or any other drugs. Allergies and Home Medications Allergies Coded Allergies: No Known Drug Allergies (Unverified , 08/19/16) Home Medications Ciprofloxacin HCl 500 Mg Tablet, 500 MG PO BID, (Reported) FILLED 09/28/16 #28 FOR A 14 DAY THERAPY Diclofenac Sodium 75 Mg Tablet.dr, 75 MG PO BID PRN for PAIN-MILD TO MODERATE, ( Reported) TAKES FOR ARTHRITIS PAIN Metronidazole 500 Mg Tablet, 500 MG PO TID, (Reported) FILLED 09/28/16 #42 FOR A 14 DAY THERAPY Oxycodone HCl 5 Mg Tablet, 5 MG PO BID PRN for PAIN-SEVERE, (Reported) Past Rildjln-Dudago-Savdev Hx Patient Social History Alcohol Use: Denies Use Recreational Drug Use: No Type Used: Cigarettes Recent Foreign Travel: No Contact w/Someone Who Travel: No Recent Hopitalizations: No Physical Abuse Screen: No Sexual Abuse: No Seasonal Allergies Seasonal Allergies: No Surgeries Surgeries: Orthopedic Respiratory Hx Respiratory Disorders: No Cardiovascular Hx Cardiac Disorders: No Neurological Hx Neurological Disorders: No Reproductive System Hx Reproductive Disorders: No Genitourinary Hx Genitourinary Disorders: No Gastrointestinal Hx Gastrointestinal Disorders: No Musculoskeletal Hx Musculoskeletal Disorders: No Endocrine Hx Endocrine Disorders: No HEENT HX ENT Disorders: No Cancer Hx Cancer: No Psychosocial Hx Psychiatric Problems: No Integumentary HX Skin/Integumentary Disorder: No Blood Transfusions Hx Blood Disorders: No Review of Systems Review of Systems General: No Chills, No Night Sweats, Fatigue, Malaise HEENT: No Head Aches Pulmonary: No Dyspnea, No Cough, No Pleuritic Chest Pain Cardiovascular: No: Chest Pain, Orthopnea, Palpitations Gastrointestinal: Abdominal Pain, Constipation, Nausea, No: Vomiting Genitourinary: No Dysuria, Frequency (improved) Neurological: Weakness, No: Change in speech, Confusion Physical Exam Vital Signs Vital Sign - Last 12Hours 09/30/16 09/30/16 15:00 15:35 Temp 96.7 Pulse 64 Resp 16 B/P (MAP) 112/75 Pulse Ox 98 O2 Delivery Room Air Capillary Refill : General Appearance: No Apparent Distress, WD/WN Eyes: Bilateral Eye Normal Inspection HEENT: PERRL/EOMI Neck: Non Tender Respiratory: Chest Non Tender, Lungs Clear, Normal Breath Sounds, No Accessory Muscle Use, No Respiratory Distress Cardiovascular: Regular Rate, Rhythm, No Edema Gastrointestinal: Normal Bowel Sounds, Soft, Tenderness (mild) Rectal: Deferred Back: Normal Inspection Extremity: Normal Range of Motion, Non Tender Neurologic/Psychiatric: Alert, Oriented x3, No Motor/Sensory Deficits, Normal Mood/Affect Skin: Normal Color, Warm/Dry Assessment/Plan Assessment/Plan Assessment/Plan 56 yo M right lower quadrant pain due to colitis- bowel rest, cld, IVF, IV zosyn h/o sigmoid diverticulitis- last bout was July 2016 right adrenal mass- July 2016 biopsy- noted hemorrhagic mass- no malignancy seen tobaccoism- recommend cessation degenerative joint disease- apap prn pain Dispo- continue IVF, zosyn, may advance diet tomorrow- and likely okay to d/c to home 10/03/16 -colonoscopy as an outpt will need to be done in near future. -Pt reports Dr. Tubbs may refer him to [facility] for removal of his right adrenal mass- will discuss further with Dr. Tubbs. Problems: Clinical Quality Measures DVT/VTE Risk/Contraindication: Risk Factor Score Per Nursin RFS Level Per Nursing on Admit: 4+=Very High EDDA MANDUJANO MD October 01, 2016 12:44
--- NOTE | 2016-10-01 14:53 | Progress Note ---
Subjective Subjective/Events-last exam Patient reports feeling better. Had bowel movement. Still some discomfort right lower abdomen. Tolerating liquids. Denies n/v fever sweats chills shortness of breath or chest pain at this time. Objective Exam Vital Signs Date Time Temp Pulse Resp B/P (MAP) Pulse Ox O2 Delivery O2 Flow Rate FiO2 10/01/16 12:27 97.7 57 19 142/80 95 Room Air 10/01/16 08:55 98.5 71 19 149/74 97 Room Air 10/01/16 04:00 96.4 61 18 136/84 95 Room Air 10/01/16 00:00 96.1 57 18 124/80 96 Room Air 09/30/16 19:50 96.8 62 20 150/99 98 Room Air 09/30/16 15:35 96.7 64 16 112/75 97 Room Air 09/30/16 15:00 98 I & O 10/01/16 07:00 Intake Total 2816 ml Output Total 775 ml Balance 2041 ml Capillary Refill : General Appearance: No Apparent Distress, WD/WN HEENT: PERRL/EOMI Neck: Non Tender Respiratory: Chest Non Tender, No Accessory Muscle Use, No Respiratory Distress Cardiovascular: Regular Rate, Rhythm, No Edema Gastrointestinal: soft, tenderness (minimal tenderness right lower quadrant) Extremity: Normal Range of Motion, Non Tender Neurologic/Psychiatric: Alert, Oriented x3, No Motor/Sensory Deficits, Normal Mood/Affect Skin: Normal Color, Warm/Dry Results Lab Laboratory Tests 09/30/16 15:18: White Blood Count 6.6, Red Blood Count 4.47, Hemoglobin 14.5, Hematocrit 42, Mean Corpuscular Volume 93, Mean Corpuscular Hemoglobin 32, Mean Corpuscular Hemoglobin Concent 35, Red Cell Distribution Width 13.2, Platelet Count 184, Mean Platelet Volume 10.5H, Neutrophils (%) (Auto) 55, Lymphocytes (%) (Auto) 29 , Monocytes (%) (Auto) 13H, Eosinophils (%) (Auto) 2, Basophils (%) (Auto) 1, Neutrophils # (Auto) 3.6, Lymphocytes # (Auto) 1.9, Monocytes # (Auto) 0.9, Eosinophils # (Auto) 0.2, Basophils # (Auto) 0.0, Sodium Level 137, Potassium Level 3.8, Chloride Level 103, Carbon Dioxide Level 24, Anion Gap 10, Blood Urea Nitrogen 12, Creatinine 0.89, Estimat Glomerular Filtration Rate > 60, BUN/ Creatinine Ratio 13, Glucose Level 93, Calcium Level 9.1 10/01/16 04:32: White Blood Count 4.3, Red Blood Count 3.97L, Hemoglobin 12.9L, Hematocrit 38L, Mean Corpuscular Volume 96, Mean Corpuscular Hemoglobin 33, Mean Corpuscular Hemoglobin Concent 34, Red Cell Distribution Width 13.4, Platelet Count 164, Mean Platelet Volume 10.6H, Neutrophils (%) (Auto) 33L, Lymphocytes (%) (Auto) 47H, Monocytes (%) (Auto) 13H, Eosinophils (%) (Auto) 5, Basophils (%) (Auto) 1 , Neutrophils # (Auto) 1.4L, Lymphocytes # (Auto) 2.0, Monocytes # (Auto) 0.5, Eosinophils # (Auto) 0.2, Basophils # (Auto) 0.1, Sodium Level 141, Potassium Level 3.9, Chloride Level 109H, Carbon Dioxide Level 24, Anion Gap 8, Blood Urea Nitrogen 10, Creatinine 0.90, Estimat Glomerular Filtration Rate > 60, BUN/ Creatinine Ratio 11, Glucose Level 90, Calcium Level 8.2L Assessment/Plan Assessment/Plan Assessment/Plan right lower quadrant pain , ascending colitis, right adrenal mass Feeling better today, still some discomfort. continue clear liquids today if continues to feel better advance diet tomorrow continue abx no surgical intervention, continue conservative management Clinical Quality Measures DVT/VTE Risk/Contraindication: Risk Factor Score Per Nursin RFS Level Per Nursing on Admit: 4+=Very High MARYCARMEN MC DO October 01, 2016 2:53 pm
[2016-10-01 16:00] VITALS: BP 131/84
[2016-10-01 20:20] VITALS: BP 150/84
[2016-10-02] VITALS: BP 155/87
[2016-10-02] MEDS: NS IV 1000 ML 1,000 ML IV SCH ×4 (02:36→21:47)
[2016-10-02] MEDS: PIPERACILLIN/TAZOBACTAM 4.5 GM/NS 100 ML IVPB IV SCH ×6 (05:43→21:47)
[2016-10-02] MEDS: NICOTINE 21 MG (NICODERM) PATCH TD SCH (09:10)
[2016-10-02] MEDS: NICOTINE PATCH REMOVAL TP SCH (09:10)
[2016-10-02] MEDS: PANTOPRAZOLE 40 MG/10 ML (PROTONIX) VIAL IV SCH (09:10)
--- NOTE | 2016-10-02 11:00 | Progress Note (SOAP) ---
Subjective Subjective CC: colitis, abdominal pain (RLQ) No overnight events- pt would like to try eating- Pt would like to go home as well - as soon as his doctors say he is well enough. Pt and have walked down to the sitting area outside today. He denies any abdominal pain, fevers. Endorses being hungry. Review of Systems General: No Chills, No Night Sweats, Fatigue, Malaise HEENT: No Head Aches Pulmonary: No Dyspnea, No Cough, No Pleuritic Chest Pain Cardiovascular: No: Chest Pain, Orthopnea, Palpitations Gastrointestinal: Abdominal Pain (nearly resolved.), Constipation, Nausea, No: Vomiting Genitourinary: No Dysuria, Frequency (improved) Neurological: Weakness, No: Change in speech, Confusion Objective Exam Vital Signs Vital Signs Date Time Temp Pulse Resp B/P (MAP) Pulse Ox O2 Delivery O2 Flow Rate FiO2 10/02/16 00:00 96.1 74 20 155/87 97 Room Air 10/01/16 20:20 97.0 64 24 150/84 97 Room Air 10/01/16 16:00 96.8 55 24 131/84 97 Room Air 10/01/16 12:27 97.7 57 19 142/80 95 Room Air I & O 10/02/16 07:00 Intake Total 3540 ml Output Total 1850 ml Balance 1690 ml General Appearance: No Apparent Distress, WD/WN Eyes: Bilateral Eye Normal Inspection HEENT: PERRL/EOMI Neck: Non Tender Respiratory: Chest Non Tender, No Accessory Muscle Use, No Respiratory Distress Cardiovascular: Regular Rate, Rhythm, No Edema Gastrointestinal: Normal Bowel Sounds, Soft, No Distended, No Guarding, No Tenderness Rectal: Deferred Back: Normal Inspection Extremity: Normal Range of Motion, Non Tender Neurologic/Psychiatric: Alert, Oriented x3, No Motor/Sensory Deficits, Normal Mood/Affect Skin: Normal Color, Warm/Dry Assessment/Plan Assessment/Plan Assessment/Plan 56 yo M right lower quadrant pain due to colitis- bowel rest, IVF, IV zosyn - ADAT - pain has nearly resolved. h/o sigmoid diverticulitis- last bout was July 2016 right adrenal mass- July 2016 biopsy- noted hemorrhagic mass- no malignancy seen tobaccoism- recommend cessation degenerative joint disease- apap prn pain Dispo- continue IVF, zosyn, advance diet and likely okay to d/c to home 10/03/16 -colonoscopy as an outpt will need to be done in near future. -Pt reports Dr. Tubbs may refer him to [facility] for removal of his right adrenal mass- will discuss further with Dr. Tubbs. Problems: Clinical Quality Measures DVT/VTE Risk/Contraindication: Risk Factor Score Per Nursin RFS Level Per Nursing on Admit: 4+=Very High EDDA MANDUJANO MD October 02, 2016 11:00
--- NOTE | 2016-10-02 12:58 | Progress Note ---
Subjective Subjective/Events-last exam Patient states has a little pain in the right lower quadrant that was sharp and for a fe minutes. It has resolved. Patient feeling better. Tolerating liquids. No new complaints. Wants more of a diet. Denies n/v fever sweats chills shortness of breath or chest pain. Objective Exam Vital Signs Date Time Temp Pulse Resp B/P (MAP) Pulse Ox O2 Delivery O2 Flow Rate FiO2 10/02/16 00:00 96.1 74 20 155/87 97 Room Air 10/01/16 20:20 97.0 64 24 150/84 97 Room Air 10/01/16 16:00 96.8 55 24 131/84 97 Room Air I & O 10/02/16 07:00 Intake Total 3540 ml Output Total 1850 ml Balance 1690 ml Capillary Refill : General Appearance: No Apparent Distress, WD/WN HEENT: PERRL/EOMI Neck: Non Tender Respiratory: Chest Non Tender, No Accessory Muscle Use, No Respiratory Distress Cardiovascular: Regular Rate, Rhythm, No Edema Gastrointestinal: soft, tenderness (no tenderness on exam, no palpable masses no guarding or rebounding.) Extremity: Normal Range of Motion, Non Tender Neurologic/Psychiatric: Alert, Oriented x3, No Motor/Sensory Deficits, Normal Mood/Affect Skin: Normal Color, Warm/Dry Assessment/Plan Assessment/Plan Assessment/Plan right ascending colitis right lower quadrant abdominal pain. right adrenal mass patient pain resolved at this time. tolerating liquids, slowly advance continue IV abx home likely tomorrow. Clinical Quality Measures DVT/VTE Risk/Contraindication: Risk Factor Score Per Nursin RFS Level Per Nursing on Admit: 4+=Very High MARYCARMEN MC DO October 02, 2016 12:58
[2016-10-02 16:45] VITALS: BP 170/95
[2016-10-03 00:03] VITALS: BP 111/72
[2016-10-03] MEDS: NS IV 1000 ML 1,000 ML IV SCH (03:28)
[2016-10-03] MEDS: PIPERACILLIN/TAZOBACTAM 4.5 GM/NS 100 ML IVPB IV SCH ×4 (05:17→14:51)
[2016-10-03 05:18] LABS: BASOPHILS % (AUTO) 1 % (0-10); EOSINOPHILS # (AUTO) 0.2 10^3/uL (0.0-0.3); EOSINOPHILS % (AUTO) 4 % (0-10); LYMPHOCYTES # (AUTO) 2.2 X 10^3 (1.0-4.0); LYMPHOCYTES % (AUTO) 41 % (12-44); MEAN CORPUSCULAR HEMOGLOBIN 33 PG (25-34); MEAN CORPUSCULAR HGB CONC 34 G/DL (32-36); MEAN CORPUSCULAR VOLUME 96 FL (80-99); MEAN PLATELET VOLUME 10.7 FL (7.4-10.4); MONOCYTES # (AUTO) 0.6 X 10^3 (0.0-1.0); MONOCYTES % (AUTO) 11 % (0-12); NEUTROPHILS # (AUTO) 2.4 X 10^3 (1.8-7.8); NEUTROPHILS % (AUTO) 44 % (42-75); PLATELET COUNT 174 10^3/uL (130-400); RED CELL DISTRIBUTION WIDTH 13.3 % (10.0-14.5); WHITE BLOOD COUNT 5.4 10^3/uL (4.3-11.0)
[2016-10-03 05:40] LABS: ALANINE AMINOTRANSFERASE 12 U/L (0-55); ANION GAP 7 MMOL/L (5-14); ASPARTATE AMINO TRANSFERASE 16 U/L (5-34); BILIRUBIN,TOTAL 0.7 MG/DL (0.1-1.0); BLOOD UREA NITROGEN 5 MG/DL (7-18); BUN/CREATININE RATIO 6; CALCIUM 8.2 MG/DL (8.5-10.1); CARBON DIOXIDE 24 MMOL/L (21-32); CHLORIDE 111 MMOL/L (98-107); CREATININE SERUM 0.89 MG/DL (0.60-1.30); GFR ESTIMATED > 60; GLUCOSE 86 MG/DL (70-105); POTASSIUM 3.8 MMOL/L (3.6-5.0); SODIUM 142 MMOL/L (135-145); TOTAL PROTEIN 5.5 G/DL (6.4-8.2)
[2016-10-03 08:00] VITALS: BP 124/80
[2016-10-03] MEDS: NICOTINE PATCH REMOVAL TP SCH (08:47)
[2016-10-03] MEDS: NICOTINE 21 MG (NICODERM) PATCH TD SCH (08:47)
[2016-10-03] MEDS: PANTOPRAZOLE 40 MG/10 ML (PROTONIX) VIAL IV SCH (08:47)
--- NOTE | 2016-10-03 08:59 | Progress Note (SOAP) ---
Subjective Subjective CC: colitis, abdominal pain (RLQ) No overnight events- pt ate mashed potatoes yesterday- he ate all of his breakfast this am eggs, potatoes, raisin bread, banana. Some right sided pain noted- that he attributes to using his arms to lift himself up. 2 bowel movements this AM. Loose, green. Feels like he is ready to go home- wants to find out what is causing his colitis. Review of Systems General: No Chills, No Night Sweats, Fatigue HEENT: No Head Aches Pulmonary: No Dyspnea, No Cough, No Pleuritic Chest Pain Cardiovascular: No: Chest Pain, Orthopnea, Palpitations Gastrointestinal: Abdominal Pain (nearly resolved.), Constipation (improved), No: Nausea (improved), Vomiting Genitourinary: No Dysuria, Frequency (improved) Neurological: Weakness, No: Change in speech, Confusion Objective Exam Vital Signs Vital Signs Date Time Temp Pulse Resp B/P (MAP) Pulse Ox O2 Delivery O2 Flow Rate FiO2 10/03/16 00:03 96.0 50 16 111/72 94 Room Air 10/02/16 19:40 99 10/02/16 16:45 97.4 57 24 170/95 99 Room Air I & O 10/03/16 07:00 Intake Total 4995 ml Output Total 3950 ml Balance 1045 ml General Appearance: No Apparent Distress, WD/WN Eyes: Bilateral Eye Normal Inspection HEENT: PERRL/EOMI Neck: Non Tender Respiratory: Chest Non Tender, No Accessory Muscle Use, No Respiratory Distress Cardiovascular: Regular Rate, Rhythm, No Edema Gastrointestinal: Normal Bowel Sounds, Soft, No Distended, No Guarding, No Tenderness Rectal: Deferred Back: Normal Inspection Extremity: Normal Range of Motion, Non Tender Neurologic/Psychiatric: Alert, Oriented x3, No Motor/Sensory Deficits, Normal Mood/Affect Skin: Normal Color, Warm/Dry Results Lab Laboratory Tests 10/03/16 04:25: White Blood Count 5.4, Red Blood Count 3.80L, Hemoglobin 12.5L, Hematocrit 36L, Mean Corpuscular Volume 96, Mean Corpuscular Hemoglobin 33, Mean Corpuscular Hemoglobin Concent 34, Red Cell Distribution Width 13.3, Platelet Count 174, Mean Platelet Volume 10.7H, Neutrophils (%) (Auto) 44, Lymphocytes (%) (Auto) 41 , Monocytes (%) (Auto) 11, Eosinophils (%) (Auto) 4, Basophils (%) (Auto) 1, Neutrophils # (Auto) 2.4, Lymphocytes # (Auto) 2.2, Monocytes # (Auto) 0.6, Eosinophils # (Auto) 0.2, Basophils # (Auto) 0.0, Sodium Level 142, Potassium Level 3.8, Chloride Level 111H, Carbon Dioxide Level 24, Anion Gap 7, Blood Urea Nitrogen 5L, Creatinine 0.89, Estimat Glomerular Filtration Rate > 60, BUN/ Creatinine Ratio 6, Glucose Level 86, Calcium Level 8.2L, Total Bilirubin 0.7, Aspartate Amino Transf (AST/SGOT) 16, Alanine Aminotransferase (ALT/SGPT) 12, Alkaline Phosphatase 42, Total Protein 5.5L, Albumin 3.0L Assessment/Plan Assessment/Plan Assessment/Plan 56 yo M right lower quadrant pain due to colitis- IVF, IV zosyn - ADAT - pain has nearly resolved. -tolerating soft diet- potatoes, eggs h/o sigmoid diverticulitis- last bout was July 2016 -treated with cipro/flagyl right adrenal mass- July 2016 biopsy- noted hemorrhagic mass- no malignancy seen tobaccoism- recommend cessation degenerative joint disease- apap prn pain Dispo- switch to augmentin today- okay to d/c to home from my standpoint. -colonoscopy as an outpt will need to be done in near future. -Pt reports Dr. Tubbs may refer him to [facility] for removal of his right adrenal mass- will discuss further with Dr. Tubbs. Problems: Clinical Quality Measures DVT/VTE Risk/Contraindication: Risk Factor Score Per Nursin RFS Level Per Nursing on Admit: 4+=Very High EDDA MANDUJANO MD October 03, 2016 08:59
[2016-10-03 15:55] VITALS: BP 141/85
--- NOTE | 2016-10-03 17:25 | Progress Note (SOAP) ---
Subjective Subjective/Events-last exam doing well. pain controlled, tolerating diet but decreased appetite. having BM' , no rectal bleed. Objective Exam Vital Signs Date Time Temp Pulse Resp B/P (MAP) Pulse Ox O2 Delivery O2 Flow Rate FiO2 10/03/16 08:00 98.4 55 20 124/80 96 Room Air 10/03/16 00:03 96.0 50 16 111/72 94 Room Air 10/02/16 19:40 99 I & O 10/03/16 07:00 Intake Total 4995 ml Output Total 3950 ml Balance 1045 ml Capillary Refill : General Appearance: No Apparent Distress HEENT: PERRL/EOMI Neck: Full Range of Motion Respiratory: Chest Non Tender, Lungs Clear, Normal Breath Sounds Cardiovascular: Regular Rate, Rhythm Gastrointestinal: normal bowel sounds, soft, tenderness Extremity: Normal Capillary Refill Neurologic/Psychiatric: Alert, Oriented x3 Skin: Normal Color Lymphatic: No Adenopathy Results Lab Laboratory Tests 10/03/16 04:25: White Blood Count 5.4, Red Blood Count 3.80L, Hemoglobin 12.5L, Hematocrit 36L, Mean Corpuscular Volume 96, Mean Corpuscular Hemoglobin 33, Mean Corpuscular Hemoglobin Concent 34, Red Cell Distribution Width 13.3, Platelet Count 174, Mean Platelet Volume 10.7H, Neutrophils (%) (Auto) 44, Lymphocytes (%) (Auto) 41 , Monocytes (%) (Auto) 11, Eosinophils (%) (Auto) 4, Basophils (%) (Auto) 1, Neutrophils # (Auto) 2.4, Lymphocytes # (Auto) 2.2, Monocytes # (Auto) 0.6, Eosinophils # (Auto) 0.2, Basophils # (Auto) 0.0, Sodium Level 142, Potassium Level 3.8, Chloride Level 111H, Carbon Dioxide Level 24, Anion Gap 7, Blood Urea Nitrogen 5L, Creatinine 0.89, Estimat Glomerular Filtration Rate > 60, BUN/ Creatinine Ratio 6, Glucose Level 86, Calcium Level 8.2L, Total Bilirubin 0.7, Aspartate Amino Transf (AST/SGOT) 16, Alanine Aminotransferase (ALT/SGPT) 12, Alkaline Phosphatase 42, Total Protein 5.5L, Albumin 3.0L Assessment/Plan Assessment/Plan Assess & Plan/Chief Complaint colitis with large right adrenal mass. f/u this week monday to schedule colonoscopy and refer to surgical endocrinology to evaulate adrenal mass. Clinical Quality Measures DVT/VTE Risk/Contraindication: Risk Factor Score Per Nursin RFS Level Per Nursing on Admit: 4+=Very High KETTY GODFREY MD October 03, 2016 5:25 pm
[2016-10-03] MEDS ORDERED: AMOX-358 PO (17:27)
--- NOTE | 2016-10-03 17:28 | Discharge Inst-Surgical ---
D/C Lap Instructions-KIDO New, Converted, or Re-Newed RX: RX on Chart Follow Up this saturday 10/07 low residue diet. Activity as tolerated Avoid Alcohol, Caffeine, Spicy [place] and Acid foods. Drink 64 fluid oz or more of fluids per day. Symptoms to Report: Fever over 101 degree F, Nausea/Vomiting If any problems/questions: Contact your physician or go to Emergency Room KETTY GODFREY MD October 03, 2016 5:28 pm
[2016-10-03 18:11] VITALS: BP 141/85
--- NOTE | 2016-10-04 09:20 | DISCHARGE SUMMARY ---
DATE OF SERVICE: 10/03/2016 ATTENDING PRIMARY CARE PHYSICIAN: Dr. Low Fontana ADMISSION DIAGNOSES: 1. Ascending colitis. 2. Large right adrenal mass. DISCHARGE SUMMARY: 1. Ascending colitis. 2. Large right adrenal mass. ADDITIONAL DIAGNOSIS: Degenerative joint disease. No procedures. No complications. DISPOSITION: Home in stable condition. The patient is a 56-year-old male with intermittent bouts of pain in the abdomen. He reports that this was much more severe approximately 1 week ago and he underwent workup including labs as well as a CT scan. White count was slightly elevated at [address] scan did show inflammation of the ascending colon. The appendix appeared normal. He was treated conservatively with oral ciprofloxacin and Flagyl, and states that he initially improved, however, worsened over time with increasing pain. He was also found to have a large 8 cm mass of the right adrenal gland. He underwent a CT guided biopsy of this lesion, however, the lesion did not yield any significant results. Due to the worsening pain, it was decided to admit him and start him on IV fluids, IV antibiotics, as well as rest. The patient was admitted, started on the fluids as well as antibiotics. He was also started on a clear liquid diet. He only required a small amount of pain medication and states that the pain did resolve over time on its own. He was also able to have multiple bowel movements which were loose. He does not report any red blood, as well as no mucousy stools. His diet was advanced and he was able to tolerate this without any difficulty. He was also ambulating well. He was discharged home on 10/03/2016. HOME GOING INSTRUCTIONS: Low residue diet for the next 6 weeks. He is to followup in the office in approximately 1 week to schedule a colonoscopy. We will proceed with Augmentin 875 mg p.o. b.i.d. for 1 week. Job ID: [id number] DocumentID: [id number] Dictated Date: 10/03/2016 20:25:32 Timber Hewer Date: 10/04/2016 09:19:41 Dictated By: KETTY GODFREY MD
== END 2016-10-03 18:13 | disposition home or self-care (01) | DRG 392 ==
LOC: OBSVTOIN 14:27 → 4TH 14:27
PROVIDERS: ADMIT Surgery Pediatric Surgery; ATTEND Surgery Pediatric Surgery
DX: K52.9 Noninfective gastroenteritis and colitis, unspecified (principal); E27.9 Disorder of adrenal gland, unspecified; F17.210 Nicotine dependence, cigarettes, uncomplicated; M19.90 Unspecified osteoarthritis, unspecified site
CPT/HCPCS: 36415; 80048; 80053; 85025

== ENCOUNTER 2016-10-17 05:33 | Outpatient (CLI) | payer BC ==
[~2016-10-17] VITALS: Ht 177.8 cm; Wt 98.4 kg
[~2016-10-17 05:33] MED LIST changes: +AMOX-358 PO; +CIPR500T4 PO; +DICL75TA2 PO; +METR500T21 PO; +OXYC5TAB71 PO
== END 2016-10-17 13:47 ==
LOC: PREOP 05:33
PROVIDERS: ATTEND Surgery Pediatric Surgery
DX: Z01.818 Encounter for other preprocedural examination (principal); Z12.11 Encounter for screening for malignant neoplasm of colon; K52.9 Noninfective gastroenteritis and colitis, unspecified; K57.92 Diverticulitis of intestine, part unspecified, without perforation or abscess without bleeding

== ENCOUNTER 2016-10-19 07:05 | Day surgery (SDC) | payer BC ==
[~2016-10-19] VITALS: Ht 177.8 cm; Wt 98.4 kg
[2016-10-19] MEDS ORDERED: NS IV 500 ML 500 ML ONE (07:37)
[2016-10-19] MEDS ORDERED: LIDOCAINE JELLY 2% (XYLOCAINE) 5 ML TUBE MM PRN (07:45)
[2016-10-19] MEDS ORDERED: NS IV 500 ML 500 ML IV SCH (07:45)
[2016-10-19] MEDS ORDERED: NALOXONE 0.4 MG/ML 1 ML (NARCAN) VIAL IVP PRN (07:45)
[2016-10-19] MEDS ORDERED: FLUMAZENIL (ROMAZICON) 0.1 MG/ML 5 ML VIAL INJ PRN (07:45)
[2016-10-19 07:53] VITALS: BP 125/78
[2016-10-19] MEDS ORDERED: MIDAZOLAM 2 MG/2 ML (VERSED) VIAL ONE ×4 (08:00→08:01)
[2016-10-19] MEDS ORDERED: fentaNYL INJECTION 100 MCG/2 ML AMP ONE ×2 (08:01)
[2016-10-19] MEDS ORDERED: LIDOCAINE JELLY 2% (XYLOCAINE) 5 ML TUBE ONE (08:07)
[2016-10-19] MEDS: fentaNYL INJECTION 100 MCG/2 ML AMP IVP PRN ×4 (09:05→09:30)
--- NOTE | 2016-10-19 09:05 | Conscious Sedation/ASA ---
Conscious Sedation Pre-Proced Time Reviewed: 08:45 ASA Class: 2 Airway Mallampati Classification: (southern ute appropriate class) I. II. III, IV Lungs Heart ASA score ASA 1: a normal healthy patient ASA 2: a patient with a mild systemic disease (mid diabetes, controlled hypertension, obesity ASA 3: a patient with a severe systemic disease that limits activity (angina , COPD, prior Myocardial infarction) ASA 4: a patient with an incapacitating disease that is a constant threat to life (CHF, renal failure) ASA 5: a moribund patient not expected to survive 24 hrs. (ruptured aneurysm) ASA 6: a declared brain patient whose organs are being harvested. For emergent operations, add the letter E after the classification Grade 2 Sedation Plan: Analgesia, Amnesia, Plan communicated to team members, Discussed options with patient/fam, Discussed risks with patient/fam Note The patient is an appropriate candidate to undergo the planned procedure, sedation, and anesthesia. The patient immediately re-assessed prior to indication. KETTY GODFREY MD October 19, 2016 9:05 am
--- NOTE | 2016-10-19 09:05 | Progress Note-Pre Operative ---
Pre-Operative Progress Note H&P Reviewed The H&P was reviewed, patient examined and no changes noted. Date H&P Reviewed: October 19, 2016 Time H&P Reviewed: 08:45 Pre-Operative Diagnosis: hx colitis KETTY GODFREY MD October 19, 2016 9:05 am
[2016-10-19] MEDS: MIDAZOLAM 2 MG/2 ML (VERSED) VIAL IVP PRN ×4 (09:07→09:35)
[2016-10-19] MEDS ORDERED: morphine INJ 10 MG/ML 1ML (SYR OR VIAL) IV PRN (09:15)
[2016-10-19] MEDS ORDERED: ONDANSETRON 4 MG/2 ML (SDV) Z0FRAN IV PRN (09:15)
[2016-10-19] MEDS ORDERED: HYDROcodone/APAP 5 MG/325 MG (LORTAB) TAB PO PRN (09:15)
[2016-10-19] MEDS ORDERED: ACETAMINOPHEN 325 MG TABLET/CAPLET (TYLENOL) PO PRN (09:15)
[2016-10-19 10:05] VITALS: BP 113/77
--- NOTE | 2016-10-19 10:08 | Progress Note-Post Operative ---
Post-Operative Progess Note Surgeon (s)/Psychiatric Tech (s) Surgeon KETTY GODFREY MD Psychiatric Tech: none Pre-Operative Diagnosis hx colitis Post-Operative Diagnosis chronic stage 2 ext and int hemorrhoids, mild colitis sigmoid colon and hepatic flexure, moderate sigmoid diverticulosis, sigmoid polyp(4mm). Procedure & Operative Findings Date of Procedure 10/19/16 Procedure Performed/Findings Colonoscopy with snare polypectomy and bx. Anesthesia Type CS Estimated Blood Loss Estimated blood loss (mL): minimal Specimens/Packing Specimens Removed colon bx hepatic flexure and sigmoid, sigmoid polyp KETTY GODFREY MD October 19, 2016 10:08 am
--- NOTE | 2016-10-19 10:09 | Discharge Inst-Surgical ---
D/C Lap Instructions-BEKAH Follow Up Appt in 2 weeks Activity as tolerated High Fiber Diet 25g or more per day Avoid Alcohol, Caffeine, Spicy [place] and Acid foods. Drink 64 fluid oz or more of fluids per day. Symptoms to Report: Fever over 101 degree F, Nausea/Vomiting If any problems/questions: Contact your physician or go to Emergency Room KETTY GODFREY MD October 19, 2016 10:09 am
[2016-10-19 10:35] VITALS: BP 117/73
[2016-10-19 10:45] VITALS: BP 117/73
--- NOTE | 2016-10-19 21:10 | OPERATIVE REPORT ---
DATE OF SERVICE: 10/19/2016 PREOPERATIVE DIAGNOSES: History of symptomatic colitis and right adrenal mass. POSTOPERATIVE DIAGNOSES: Chronic stage II external and internal hemorrhoids, mild colitis of the sigmoid colon and hepatic flexure, sigmoid colon polyp approximately 4 mm in size, which was sessile, moderate sigmoid diverticulosis. PROCEDURES: Colonoscopy with biopsy and snare polypectomy. SURGEON: Ketty Godfrey MD ANESTHESIA: Conscious sedation. ESTIMATED BLOOD LOSS: Minimal. FINDINGS: Chronic stage II external and internal hemorrhoids. Prostate gland was palpable and appeared normal. Mild colitis of the sigmoid colon and hepatic flexure, moderate sigmoid diverticulosis. Sigmoid colonic polyp which was sessile and approximately 4 mm in size. DISPOSITION: The patient tolerated the procedure well. INDICATIONS: The patient is a 56-year-old male who was admitted to the hospital for intermittent episodes of abdominal pain, more on the right side. He reported that this became more severe, and he had a CT scan, as well as labwork. His white count was slightly elevated at 11, and the CT scan did show inflammation of the ascending colon with the appendix appearing normal. He was treated conservatively with IV antibiotics, and his pain improved. He was also found to have a large 8 cm mass of the adrenal gland. He underwent a biopsy of the lesion, and the biopsy came back fragments of benign adrenal tissue with cellular debris. He was seen for followup and stated he was doing better; however, continued to have a dull ache in the right lateral abdomen, as well as the flank, most likely consistent with the adrenal mass. He has an appointment to see a specialist at [facility]. He has also not had a colonoscopy done in the past. He also does not report any family history of colon cancer. He also does not report any red blood per rectum nor any dark tarry stools. PROCEDURE IN DETAIL: The patient was brought to the endoscopy suite, laid in the left lateral decubitus position. After adequate IV pain and sedative medications and conscious sedation anesthesia, a digital rectal examination was performed. Mild stage II chronic external and internal hemorrhoids were identified, which were not actively edematous nor inflamed and no bleeding. Normal sphincter tone was felt, and there were no palpable masses. Prostate gland was palpable and appeared normal. The endoscope was then intubated into the anus and rectum and gently insufflated. The endoscope was then advanced to the [facility] into the rectum with no polyps or any neoplasms identified. Through the sigmoid colon, there were multiple very small areas of mild inflammation of the sigmoid colon. A biopsy was taken of this area using forceps and electrocautery with visualization of good hemostasis. The endoscope was then advanced, and a moderate sigmoid diverticulosis identified. There were no mucosal inflammatory changes to indicate any active diverticulitis. A sessile polyp approximately 4 mm in size was identified of the distal sigmoid colon as well. This was completely excised using a wire snare and electrocautery with visualization of good hemostasis. The endoscope was then advanced through the remainder of the descending and transverse colon. At the hepatic flexure, a small area of inflammation was identified. This was biopsied using forceps and electrocautery with visualization of good hemostasis. The endoscope was then advanced through the ascending colon to the cecum. These segments were normal. The endoscope was then slowly withdrawn while taking a second look and suctioning of residual air with no additional findings. The patient tolerated the procedure well. We will await the biopsy results. We also recommend followup care at [facility] for the adrenal specialists to evaluate the mass, which most likely is causing the majority of his symptoms. If he does have recurrent episodes of abdominal pain associated with a change in bowel habits in diarrhea or blood per rectum, this may indicate a form of inflammatory bowel disease, and we will pursue medical therapy. Job ID: [id number] DocumentID: [id number] Dictated Date: 10/19/2016 10:17:11 Machine Assembler Date: 10/19/2016 21:10:29 Dictated By: KETTY GODFREY MD
== END 2016-10-19 10:45 | disposition home or self-care (01) ==
LOC: ENDO 07:05
PROVIDERS: ATTEND Surgery Pediatric Surgery
DX: K52.9 Noninfective gastroenteritis and colitis, unspecified (principal); D12.5 Benign neoplasm of sigmoid colon; K57.30 Diverticulosis of large intestine without perforation or abscess without bleeding; K64.1 Second degree hemorrhoids; F17.210 Nicotine dependence, cigarettes, uncomplicated
CPT/HCPCS: 88305

== ENCOUNTER → 2017-08-30 | Outpatient (CLI) | payer BC ==
[~2017-08-30] MED LIST changes: +OXYC-529 PO; -OXYC5TAB71 PO
--- NOTE | 2017-08-30 14:12 | Diagnostic Imaging Report ---
EXAMINATION: Right foot at 12:36 p.m. INDICATION: Foot pain. Three views were obtained. There are no prior studies available for comparison. FINDINGS: There is no fracture, dislocation, or acute bony abnormality evident. However, there is severe degenerative disease involving the first metatarsophalangeal joint. There is near-complete obliteration of the joint space, and there is sclerosis of the opposing surfaces of the proximal phalanx and the metatarsal head. There is also a calcaneal spur. The soft tissues are unremarkable. IMPRESSION: There is no evidence for an acute bony abnormality. Dictated by: Dictated on workstation # [id number]
== END ==
LOC: RAD 12:08
PROVIDERS: ATTEND Family Medicine
DX: M79.671 Pain in right foot (principal)
CPT/HCPCS: 73630

== ENCOUNTER → 2018-01-04 | Outpatient (CLI) | payer BC ==
--- NOTE | 2018-01-04 13:42 | Diagnostic Imaging Report ---
PROCEDURE: CT abdomen without contrast. TECHNIQUE: Multiple contiguous axial images were obtained through the abdomen without the use of intravenous contrast. INDICATION: Mid abdominal pain above the umbilical area for 1-1/2 to 2 months. 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 CORRELATION STUDY: 09/27/2016 FINDINGS: The lung bases are clear. Unenhanced liver, spleen, pancreas, gallbladder and left adrenal gland, unremarkable. The right adrenal gland is absence with clips in the suprarenal region. The kidneys are unremarkable. Collecting systems are unremarkable. Abdominal aorta has mild wall calcifications, nonaneurysmal. The abdominal wall, small uncomplicated retro umbilical hernia. Visualized portions of the gastrointestinal tract are unremarkable. Portions of the appendix are visualized and unremarkable. No upper abdominal ascites. Osseous structures demonstrate no acute abnormality. The pelvis is not imaged on this study. IMPRESSION: 1. Negative for acute abnormality about the abdomen on noncontrast imaging. 2. Interval resection of the right adrenal gland mass. Dictated by: Dictated on workstation # [id number]
== END ==
LOC: RAD 12:56
PROVIDERS: ATTEND Family Medicine
DX: R10.9 Unspecified abdominal pain (principal); Z98.890 Other specified postprocedural states
CPT/HCPCS: 74150

== ENCOUNTER → 2019-09-07 | Outpatient (CLI) | payer BC ==
[~2019-09-07] MED LIST changes: +METR-145 PO; -METR500T21 PO; -OXYC-529 PO; +OXYC5TAB96 PO
== END ==
LOC: LAB 10:02
PROVIDERS: ATTEND Nurse Practitioner Family
DX: R10.11 Right upper quadrant pain (principal); R19.7 Diarrhea, unspecified
CPT/HCPCS: 82274; 87015; 87045; 87046; 87324; 87328; 87329; 87449; 87493; 87899

== ENCOUNTER → 2019-11-27 | Outpatient (CLI) | payer BC ==
[~2019-11-27] MED LIST changes: +ACHYD1T PO
--- NOTE | 2019-11-27 09:54 | Diagnostic Imaging Report ---
PROCEDURE: US Gallbladder. TECHNIQUE: Multiple real-time grayscale images were obtained over the right upper quadrant in various projections. INDICATION: Right upper quadrant abdominal pain and bloating. Correlation is made with CT scan of the abdomen and pelvis performed on 01/04/2018. FINDINGS: There is no focal hepatic abnormality. Gallbladder contains minimal punctate echogenic focus near the neck region. This could be immediately adjacent to the gallbladder as opposed within the gallbladder. There is no evidence of gallbladder wall thickening or pericholecystic fluid. There is no evidence of biliary ductal dilatation. Pancreas is largely obscured. No abdominal aortic, inferior vena caval or right renal abnormality is seen. There is no evidence of free fluid. IMPRESSION: Tiny echogenic focus near the neck of the gallbladder could represent stone or adjacent calcification. There is no secondary sign of acute cholecystitis or biliary obstruction. Dictated by: Dictated on workstation # [id number]
== END ==
LOC: RAD 07:23
PROVIDERS: ATTEND Nurse Practitioner Family
DX: K92.1 Melena (principal); A04.72 Enterocolitis due to Clostridium difficile, not specified as recurrent; M13.88 Other specified arthritis, other site
CPT/HCPCS: 76705

== ENCOUNTER 2019-12-02 06:39 | Outpatient (RCR) | payer BC ==
[~2019-12-02] VITALS: Ht 177 cm; Wt 99.5 kg
[~2019-12-02 06:39] MED LIST changes: -ACHYD1T PO
[2019-12-02] MEDS ORDERED: DICL75TA2 PO (12:11)
[2019-12-03] MEDS ORDERED: ACHYD1T PO (13:13)
== END 2019-12-02 12:22 | disposition home or self-care (01) ==
LOC: PREOP 06:39
PROVIDERS: ATTEND Surgery
DX: Z01.818 Encounter for other preprocedural examination (principal)

== ENCOUNTER 2019-12-03 10:25 | Day surgery (SDC) | payer BC ==
[2019-12-03] VITALS (10 sets, daily range): BP systolic 115–156; BP diastolic 53–88
[~2019-12-03] VITALS: Ht 177 cm; Wt 99.5 kg
[2019-12-03 10:57] LABS: BASOPHILS % (AUTO) 1 % (0-10); EOSINOPHILS # (AUTO) 0.2 10^3/uL (0.0-0.3); EOSINOPHILS % (AUTO) 3 % (0-10); HEMATOCRIT 43 % (40-54); HEMOGLOBIN 14.8 G/DL (13.3-17.7); LYMPHOCYTES # (AUTO) 2.3 X 10^3 (1.0-4.0); LYMPHOCYTES % (AUTO) 38 % (12-44); MEAN CORPUSCULAR HEMOGLOBIN 33 PG (25-34); MEAN CORPUSCULAR HGB CONC 35 G/DL (32-36); MEAN CORPUSCULAR VOLUME 94 FL (80-99); MONOCYTES # (AUTO) 0.6 X 10^3 (0.0-1.0); MONOCYTES % (AUTO) 10 % (0-12); NEUTROPHILS # (AUTO) 2.9 X 10^3 (1.8-7.8); NEUTROPHILS % (AUTO) 48 % (42-75); PLATELET COUNT 197 10^3/uL (130-400); RED CELL DISTRIBUTION WIDTH 13.7 % (10.0-14.5)
[2019-12-03] MEDS ORDERED: ceFAZolin INJECTION 0 MG ONE ×2 (11:08→11:10)
[2019-12-03] MEDS ORDERED: WATER (STERILE) FOR INJECTION 10 ML ONE (11:10)
[2019-12-03] MEDS ORDERED: BUP/EPI 0.5% 1:200,000 (SENSORCAINE) 30 ML VIAL ONE (11:11)
[2019-12-03] MEDS ORDERED: IOPAMIDOL 61% 30 ML (ISOVUE 300) VIAL ONE (11:12)
[2019-12-03] MEDS ORDERED: proPOfol 200 MG/20 ML (DIPRIVAN) VIAL IV ONE (11:28)
[2019-12-03] MEDS ORDERED: LIDOCAINE PF 2% 5 ML (XYLOCAINE) VIAL ONE (11:28)
[2019-12-03] MEDS ORDERED: DEXAMETHASONE 10 MG/ML (DECADRON) 1 ML VIAL ONE (11:28)
[2019-12-03] MEDS ORDERED: ONDANSETRON 4 MG/2 ML (SDV) Z0FRAN ONE (11:28)
[2019-12-03] MEDS ORDERED: GLYCOPYRROLATE 0.2 MG/ML (ROBINUL) 2 ML VIAL ONE (11:28)
[2019-12-03] MEDS ORDERED: NEOSTIGMINE 3 MG/3 ML VIAL ONE (11:28)
[2019-12-03] MEDS ORDERED: SEVOFLURANE (ULTANE) 15 ML INHAL SOLN ONE (11:28)
[2019-12-03] MEDS ORDERED: ROCURONIUM 10 MG/ML 5 ML SYRINGE IV ONE ×2 (11:28→12:48)
[2019-12-03] MEDS ORDERED: MIDAZOLAM 2 MG/2 ML (VERSED) VIAL ONE (11:29)
[2019-12-03] MEDS ORDERED: fentaNYL INJECTION 100 MCG/2 ML AMP ONE (11:29)
--- NOTE | 2019-12-03 11:35 | Progress Note-Pre Operative ---
Pre-Operative Progress Note H&P Reviewed The H&P was reviewed, patient examined and no changes noted. Time Seen by Provider: 11:31 Date H&P Reviewed: Dec 03, 2019 Time H&P Reviewed: 11:32 Pre-Operative Diagnosis: Cholelithiasis/Cholecystitis MYNOR PABON DO Dec 03, 2019 11:35
[2019-12-03] MEDS ORDERED: ceFAZolin INJECTION 1,000 MG ONE (12:11)
[2019-12-03] MEDS ORDERED: ceFAZolin INJECTION 1,000 MG in WATER (STERILE) FOR INJECTION 10 ML IV ONE (12:45)
[2019-12-03] MEDS ORDERED: LACTATED RINGERS 1,000 ML IV PRN (12:45)
[2019-12-03] MEDS ORDERED: HYDROmorphone 2 MG/ML VIAL (DILAUDID) ONE ×2 (13:05→13:27)
--- NOTE | 2019-12-03 13:12 | Progress Note-Post Operative ---
Post-Operative Progess Note Surgeon (s)/Termite Control Servicer (s) Surgeon MYNOR PABON DO Termite Control Servicer: Gloria Pre-Operative Diagnosis Cholelithiasis/Cholecystitis Post-Operative Diagnosis Same plus adhesions and Right inguinal hernia Procedure & Operative Findings Date of Procedure 12/03/19 Procedure Performed/Findings PROCEDURE: Laparoscopic cholecystectomy with intraoperative cholangiogram. COMPLICATIONS: None. PROCEDURE: The patient was taken to the operating suite and was prepped and draped in sterile fashion. A surgical pause was performed. Just superior to the umbilicus, a 12 mm incision was made. Dissection was taken down to the fascia, which was then scored and grasped with a Brenda and the abdomen was then entered. A 0 Vicryl suture was placed in a [id number] fashion and a Casas trocar was placed and secured. Pneumoperitoneum was achieved. Upon entering noted adhesions from previous surgery; these were carefully taken down with bovie cautery. Omentum stuck to abdominal wall and to the liver. A 5mm trochar place in the subxyphoid and 2 in the right upper quadrant. The gallbladder was then grasped and elevated. The cystic duct, and cystic artery were then dissected out. Clip was placed on the distal portion of the cystic duct which was then partially transected. An arrow catheter was inserted into the duct. The cholangiogram was then performed. No filing defects and contrast made its way into the duodenum. Catheter removed. Clips were placed on proximal portion of the cystic duct and then the duct was then transected. Clips were placed along the proximal and distal portion of the cystic artery which was then transected. Hook cautery was used to dissect the gallbladder from the gallbladder fossa achieving hemostasis. The gallbladder was placed in an Endobag and removed through the 12 mm trocar site. The abdomen was then reinspected. Copious amounts of irrigation were used to irrigate the abdomen and there were no signs of active bleeding. Hemostasis had been achieved. Looking in the pelvis a right inguinal hernia was seen and picture taken. The 12 mm fascial defect was then closed with 0 Vicryl suture that had been placed in a [id number] fashion. The abdomen was then desufflated, the trocars were removed. The abdomen was then washed and dried. The skin was then closed using 4-0 Monocryl in a subcuticular fashion. The abdomen was washed and dried and Skin Affix was place over incisions. Patient tolerated the procedure well without any complications and was taken to the recovery room in stable condition. Dr. Castro assisted on this case helping to make incisions, close incisions, identify anatomy and hold anatomy out of the way. Anesthesia Type GET Estimated Blood Loss Estimated blood loss (mL): scant Specimens/Packing Specimens Removed GB and contents MYNOR PABON DO Dec 03, 2019 13:12
[2019-12-03] MEDS ORDERED: ACHYD1T PO (13:13)
--- NOTE | 2019-12-03 13:14 | Discharge Inst-Surgical ---
Discharge Inst-Surgical Depart Medication/Instructions New, Converted or Re-Newed RX: RX Given to Pt/Family Patient Instructions Follow up Appt: Make appointment for 1 week. [phone] Instructions: No lifting greater than 20 pounds. No strenuous activity. May shower in 24 hours, no tub bath or soaking. Use incentive spirometer at home as directed. No Smoking Skin/Wound Care: May remove bandages in am. You need to leave the Dermabond on incision it will fall off on it's own. Symptoms to Report: Appetite Changes, Extremity Discoloration, Numbness/Tingling, Swelling Increased, Bleeding Excessive, Eyesight Changes, Pain Increased, Urine Color Change, Constipation(Persistent), Fever over 101 degree F, Pain/Pressure in chest, Urinating Difficulty, Cough Up/Vomit Blood, Heart Beat Irreg/Pounding, Pain/Pressure in jaw, Cramps in feet or legs, Lightheadedness, Pain/Pressure in shoulder, Diarrhea(Persistent), Memory Changes Suddenly, Questions/Concerns, Weight gain consecutive days, Dizziness/Fainting, Nausea/Vomiting, Shortness of Breath, Weight gain over 2 pounds If questions or concerns contact your physician Or seek help at emergency department. Activity Activity as Tolerated: Yes Activity Instructions: Avoid Stress to Incision Driving Instructions: No Driving/Refer to Diet Discharge Diet: Avoid Fatty Foods, Low Fat/Low Cholesterol Diet After 24 Hours: Clear Liquid if Nauseous If Any Problems/Questions/Issu: Contact Your Physician, Go to Emergency Room Skin/Wound Care Infection Signs and Symptoms: Increased Redness, Foul Odor of Wound, Increased Drainage, Skin Itchy or Has a Rash, Increased Swelling, Temperature Above 101 F Wound Care Comment: heating pad to shoulder or neck tonight for pain Bathing Instructions: Shower Stitches/[place]/Dermabond Dis: Dermabond Ice Pack: Ice On and Off Site (as needed for pain at incisions) MYNOR PABON DO Dec 03, 2019 13:14
[2019-12-03] MEDS ORDERED: morphine INJ 10 MG/ML 1ML (SYR OR VIAL) IVP ONE (13:30)
[2019-12-03] MEDS ORDERED: ONDANSETRON 4 MG/2 ML (SDV) Z0FRAN IVP PRN (13:30)
[2019-12-03] MEDS ORDERED: HYDROmorphone 2 MG/ML VIAL (DILAUDID) IV ONE (13:30)
--- NOTE | 2019-12-03 13:56 | Anesthesia-General Post-Op ---
General Patient Condition Mental Status/LOC: Same as Preop Cardiovascular: Satisfactory Nausea/Vomiting: Absent Respiratory: Satisfactory Pain: Controlled Complications: Absent Post Op Complications Complications None Follow Up Care/Instructions Patient Instructions None needed. Anesthesia/Patient Condition Patient Condition Patient is doing well, no complaints, stable vital signs, no apparent adverse anesthesia problems. SHERIN PATTON DO Dec 03, 2019 13:56
--- NOTE | 2019-12-03 14:17 | Diagnostic Imaging Report ---
INDICATION: Fluoroscopy for intraoperative cholangiogram. Fluoroscopy was provided in the OR during intraoperative cholangiogram. 12 seconds of fluoroscopic time was utilized. Images demonstrate contrast being injected via the cystic duct remnant. Intrahepatic and extra hepatic bile ducts are of normal caliber. No filling defects are seen. Contrast flows into the duodenum. IMPRESSION: Fluoroscopy during intraoperative cholangiogram. Dictated by: Dictated on workstation # [id number]
[2019-12-03] MEDS ORDERED: HYDROcodone/APAP 10 MG/325 MG (LORTAB) TAB PO ONE ×2 (14:26→14:30)
== END 2019-12-03 15:31 | disposition home or self-care (01) ==
LOC: SDC 10:25
PROVIDERS: ATTEND Surgery
DX: K80.10 Calculus of gallbladder with chronic cholecystitis without obstruction (principal); K40.90 Unilateral inguinal hernia, without obstruction or gangrene, not specified as recurrent; K66.0 Peritoneal adhesions (postprocedural) (postinfection); K21.9 Gastro-esophageal reflux disease without esophagitis; K57.90 Diverticulosis of intestine, part unspecified, without perforation or abscess without bleeding; K58.9 Irritable bowel syndrome, unspecified; F17.210 Nicotine dependence, cigarettes, uncomplicated; Z79.899 Other long term (current) drug therapy; Z20.828 Contact with and (suspected) exposure to other viral communicable diseases; Z83.3 Family history of diabetes mellitus
CPT/HCPCS: 47563; 76000; 85025; 87081; 88304; U0002; 36415; 87635

== ENCOUNTER → 2020-08-21 | Outpatient (CLI) | payer BC ==
[~2020-08-21] MED LIST changes: +ACHYD1T PO; -CIPR500T4 PO; +CIPR500T5 PO; +OXC5T PO; -OXYC5TAB96 PO
--- NOTE | 2020-08-21 16:22 | Diagnostic Imaging Report ---
INDICATION: Chest pain. COMPARISON: None FINDINGS: Frontal and lateral views of the chest demonstrate normal heart size and pulmonary vascularity. The lungs are clear. There are no signs of infiltrate, pleural effusions or pneumothoraces. The visualized osseous structures show no acute abnormalities. IMPRESSION: 1. No acute process. No signs of infiltrates, effusions or pneumothoraces. Dictated by: Dictated on workstation # [id number]
== END ==
LOC: RAD 15:35
PROVIDERS: ATTEND Nurse Practitioner Family
DX: R07.89 Other chest pain (principal); R42 Dizziness and giddiness; R06.02 Shortness of breath; R53.83 Other fatigue; R00.0 Tachycardia, unspecified; M13.80 Other specified arthritis, unspecified site
CPT/HCPCS: 71046

== ENCOUNTER 2020-08-25 14:00 | Outpatient (RCR) | payer BC | END 2020-11-23 | disposition home or self-care (01) | LOC: CARD 14:00 | PROVIDERS: ATTEND Nurse Practitioner Family | DX: R07.89 Other chest pain (principal); R42 Dizziness and giddiness; R06.02 Shortness of breath; R53.83 Other fatigue; R00.0 Tachycardia, unspecified; M13.88 Other specified arthritis, other site | CPT/HCPCS: 93225; 93226 ==

== ENCOUNTER → 2020-08-28 | Outpatient (CLI) | payer BC | LOC: LAB 09:02 | PROVIDERS: ATTEND Nurse Practitioner Family | DX: R60.9 Edema, unspecified (principal); R00.0 Tachycardia, unspecified; R06.02 Shortness of breath; R07.9 Chest pain, unspecified | CPT/HCPCS: 36415; 83735; 83880 ==